=== PATIENT | male | born 1955 | race African-American/Black ===

== ENCOUNTER 2018-06-24 19:43 | Inpatient (IN) | payer MEDICARE ==
[2018-06-24] MEDS ORDERED: METHYLPREDNISOLONE INJ 125 MG/2 ML SDV IV ONE (20:05)
[2018-06-24] MEDS ORDERED: IPRATROPIUM/ALBUTEROL 0.5-2.5 MG/3 ML AMPUL NEB ONE ×2 (20:05→20:24)
--- NOTE | 2018-06-24 20:31 | ER Document Report ---
ED Respiratory Problem - General Chief Complaint: Shortness Of Breath Stated Complaint: SHORTNESS OF BREATH Time Seen by Provider: 06/24/18 20:07 Notes: Patient is a 62-year-old male presenting to the emergency department complaining of cough and congestion shortness of breath since yesterday. Patient denies fever, chest pain, abdominal pain, nausea, vomiting, dysuria. Patient states he did present to urgent care who gave him 1 breathing treatment and a IM shot of steroids. Patient is unsure of the breathing treatment that was administered and unsure of the name of the steroids. Patient does admit to taking his DuoNeb inhaler 4 times a day without relief. Patient states urgent care told him to come over to the emergency room because his oxygen saturation continues to be low. Upon arrival to the emergency department and. Patient's pulse ox was 87%. Past medical history: COPD, hyperlipidemia, hypertension, diabetes, congestive heart failure Medications: DuoNeb, metoprolol, potassium, Lasix, atorvastatin, metformin Allergies: None Surgical history: CABG x4 Patient states he quit smoking April 2015, denies EtOH use, denies illicit drug use. TRAVEL OUTSIDE OF THE [place] IN LAST 30 DAYS: No - Related Data Allergies/Adverse Reactions: No Known Allergies Allergy (Unverified 06/24/18 19:47) Past Medical History - General Information source: Patient - Social History Smoking Status: Former Smoker Lives with: Alone Family History: Reviewed & Not Pertinent Review of Systems - Review of Systems Constitutional: See HPI EENT: See HPI Cardiovascular: See HPI Respiratory: See HPI Gastrointestinal: See HPI Genitourinary: See HPI Male Genitourinary: No symptoms reported Musculoskeletal: No symptoms reported Skin: No symptoms reported Hematologic/Lymphatic: No symptoms reported Neurological/Psychological: No symptoms reported Physical Exam - Vital signs Vitals: Temp Pulse Resp BP Pulse Ox 99.2 F 62 24 H 143/60 H 87 L 06/24/18 19:51 06/24/18 19:51 06/24/18 19:51 06/24/18 19:51 06/24/18 19:51 - Notes Notes: GENERAL: Alert, interacts well. No acute distress. HEAD: Normocephalic, atraumatic. EYES: Pupils equal, round, and reactive to light. Extraocular movements intact. ENT: Oral mucosa moist, tongue midline. Pharynx within normal limits, no palatal petechiae or exudate noted. TMs nonerythematous nonbulging bilaterally. NECK: Full range of motion. Supple. Trachea midline. No adenopathy appreciated LUNGS: Slight inspiratory and diffuse expiratory wheeze all barron. No rales, or rhonchi. Patient slightly tachypneic 26 but able to speak in full sentences with no difficulty noted. Patient is currently on 2 L of oxygen nasal cannula with a saturation of 98%. HEART: Regular rate and rhythm. No murmur. Well-healed CABG scar. ABDOMEN: Soft, non-tender. Non-distended. Bowel sounds present in all 4 quadrants. EXTREMITIES: Moves all 4 extremities spontaneously. No edema, normal radial and dorsalis pedis pulses bilaterally. No cyanosis. BACK: no cervical, thoracic, lumbar midline tenderness. No saddle anesthesia, normal distal neurovascular exam. NEUROLOGICAL: Alert and oriented x3. Normal speech. cranial nerves II through XII grossly intact PSYCH: Normal affect, normal mood. SKIN: Warm, dry, normal turgor. No rashes or lesions noted. Course - Re-evaluation Re-evalutation: 06/24/18 21:40 Upon reexamination patient states he feels "100% better." Still with end expiratory wheezes in all barron, DuoNeb treatment is currently being administered. 06/24/18 22:37 Reevaluate patient after DuoNeb treatments. Patient continues to state he feels a lot better. Patient continues with an expiratory wheeze in all barron. Influenza was negative, chest x-ray shows no signs of pneumonia. Will treat with 1 more albuterol treatment, ambulate with pulse ox. 06/24/18 23:56 Upon reevaluation patient continues with expiratory wheezes all barron. No signs of vascular congestion or pleural effusions or pneumonia on chest x-ray. Patient continues with oxygen saturation around 90% on 2 L of oxygen, drops down to 86% on no oxygen and upon ambulation with oxygen. Patient continues to deny any chest pain. Patient states he does feel better but due to oxygen saturations dropping he agrees to admission. Discussed need for admission with Dr. York who agrees. Dr. York will see patient in the emergency room - Vital Signs Vital signs: Temp Pulse Resp BP Pulse Ox 99.2 F 62 15 127/64 H 92 06/24/18 19:51 06/24/18 19:51 06/25/18 00:01 06/25/18 00:01 06/25/18 00:01 - Laboratory Result Diagrams: 06/24/18 20:40 06/24/18 20:40 Laboratory results interpreted by me: 06/24/18 06/24/18 06/24/18 20:40 20:40 21:13 MCH 26.7 L RDW 16.3 H Carbon Dioxide 34 H Urine Blood SMALL H Discharge - Discharge Clinical Impression: COPD exacerbation Condition: Stable Disposition: ADMITTED OBSERVATION Admitting Provider: [facility] Unit Admitted: Telemetry
[2018-06-24 20:50] LABS: ABSOLUTE BASOPHILS # (AUTO) 0.1 10^3/uL (0.0-0.2); ABSOLUTE EOSINOPHILS # (AUTO) 0.3 10^3/uL (0.0-0.6); ABSOLUTE LYMPHOCYTES (AUTO) 1.2 10^3/uL (0.5-4.7); ABSOLUTE MONOCYTES (AUTO) 0.7 10^3/uL (0.1-1.4); ABSOLUTE NEUT (AUTO) 4.1 10^3/uL (1.7-8.2); BASOPHILS % (AUTO) 0.9 % (0-2); EOSINOPHILS % (AUTO) 5.4 % (0-6); HEMATOCRIT 43.1 % (37.9-51.0); HEMOGLOBIN 14.2 g/dL (13.5-17.0); LYMPHOCYTES % (AUTO) 18.9 % (13-45); MEAN CORPUSCULAR HEMOGLOBIN 26.7 pg (27.0-33.4); MEAN CORPUSCULAR HGB CONC 32.8 g/dL (32.0-36.0); MEAN CORPUSCULAR VOLUME 82 fl (80-97); MONOCYTES % (AUTO) 10.9 % (3-13); PLATELET COUNT 209 10^3/uL (150-450); RED BLOOD COUNT 5.29 10^6/uL (4.35-5.55); RED CELL DISTRIBUTION WIDTH 16.3 % (11.5-14.0); SEGMENTED NEUTROPHILS % (AUTO) 63.9 % (42-78); TOTAL CELLS COUNTED % (AUTO) 100 %; WHITE BLOOD COUNT 6.5 10^3/uL (4.0-10.5)
[2018-06-24] MEDS: ALBUTEROL SULFATE 0.083% NEB 2.5 MG/3 ML AMPUL NEB SCH ×2 (20:51→22:01)
[2018-06-24] MEDS: MAGNESIUM SULFATE/D5W 1 GM/100 ML RTUPB IV SCH ×2 (20:51→22:00)
[2018-06-24 21:11] LABS: ALANINE AMINOTRANSFERASE 33 U/L (21-72); ALBUMIN 3.9 g/dL (3.5-5.0); ALKALINE PHOSPHATASE 102 U/L (38-126); ANION GAP 11 (5-19); ASPARTATE AMINO TRANSFERASE 37 U/L (17-59); BILIRUBIN,DIRECT 0.1 mg/dL (0.0-0.4); BILIRUBIN,TOTAL 0.6 mg/dL (0.2-1.3); BLOOD UREA NITROGEN 16 mg/dL (7-20); CALCIUM 9.1 mg/dL (8.4-10.2); CARBON DIOXIDE 34 mmol/L (22-30); CHLORIDE 100 mmol/L (98-107); CREATINE KINASE 167 U/L (55-170); GLUCOSE 90 mg/dL (75-110); POTASSIUM 3.9 mmol/L (3.6-5.0); SODIUM 144.5 mmol/L (137-145); TOTAL PROTEIN 7.3 g/dL (6.3-8.2)
--- NOTE | 2018-06-24 21:13 | RADIOLOGY REPORT (SQ) ---
EXAM DESCRIPTION: XR CHEST 1 VIEW COMPLETED DATE/TME: 06/24/2018 20:05 CLINICAL HISTORY: 62 years, Male, difficulty breathing Heart is mildly enlarged. Status post median sternotomy. No consolidation or pleural effusion. No pulmonary edema or pneumothorax. IMPRESSION: No acute disease.
[2018-06-24 21:21] LABS: CREATINE KINASE MB 1.58 ng/mL (<4.55); NT PRO BNP 483 pg/mL (5-900)
[2018-06-24 21:22] LABS: TROPONIN I < 0.012 ng/mL
[2018-06-24 21:41] LABS: APPEARANCE,URINE CLEAR; BILIRUBIN,URINE NEGATIVE (NEGATIVE); COLOR,URINE COLORLESS; GLUCOSE, URINE NEGATIVE (NEGATIVE); KETONES,URINE NEGATIVE (NEGATIVE); LEUKOCYTE ESTERASE,URINE NEGATIVE (NEGATIVE); NITRITE,URINE NEGATIVE (NEGATIVE); PROTEIN,URINE NEGATIVE (NEGATIVE); URINE SPECIFIC GRAVITY 1.006; UROBILINOGEN,URINE NEGATIVE mg/dL (<2.0)
[2018-06-24 22:27] LABS: A TYPE INFLUENZA AG NEGATIVE (NEGATIVE); B INFLUENZA AG NEGATIVE (NEGATIVE)
[2018-06-24] MEDS ORDERED: ALBUTEROL SULFATE 0.083% NEB 2.5 MG/3 ML AMPUL NEB ONE (22:37)
[2018-06-24] MEDS ORDERED: ACETAMINOPHEN 325 MG TABLET PO PRN (23:56)
[2018-06-24] MEDS ORDERED: HYDRALAZINE HCL INJ/PF 20 MG/1 ML SDV IV PRN (23:56)
[2018-06-24] MEDS ORDERED: IPRATROPIUM/ALBUTEROL 0.5-2.5 MG/3 ML AMPUL NEB PRN (23:56)
[2018-06-24] MEDS ORDERED: GUAIFENESIN SYRP 200 MG/10 ML UDC PO PRN (23:56)
[2018-06-25] MEDS ORDERED: CHLORPHENIRAMINE MALEATE 4 MG TABLET PO ONE (00:22)
[2018-06-25] MEDS ORDERED: LEVOFLOXACIN 750 MG/D5W RTU 750 MG/150 ML RTUPB IV ONE (01:00)
[2018-06-25] MEDS: IPRATROPIUM/ALBUTEROL 0.5-2.5 MG/3 ML AMPUL NEB SCH ×4 (02:09→20:25)
--- NOTE | 2018-06-25 03:49 | PDOC H&P ---
History of Present Illness Admission Date/PCP: 06/25/18 00:05 Patient complains of: Shortness of breath History of Present Illness: NAVYA MELTON is a 62 year old male with a past medical history of coronary artery disease status post coronary artery bypass graft 2014, COPD, diabetes and chronic bronchitis. Patient presents 5 days of rhinorrhea, productive cough with landis sputum, developing shortness of breath over the last 24 hours. In the emergency room is found to have oxygen saturations of 87% on room air but otherwise unremarkable workup.. He received several nebulizer treatments with Solu-Medrol and referred to the hospitalist for admission. He denies chest pain palpitations nausea or vomiting. He admits recent prednisone and Z- Rigo which partially improved symptoms 10 days ago. Past Medical History Cardiac Medical History: Reports: Coronary Artery Disease, Hypertension Pulmonary Medical History: Reports: Bronchitis, Chronic Obstructive Pulmonary Disease (COPD) Endocrine Medical History: Reports: Diabetes Mellitus Type 2 Past Surgical History Past Surgical History: Reports: Coronary Artery Bypass Graft Social History Information Source: Patient Lives with: Alone Smoking Status: Former Smoker Frequency of Alcohol Use: None Hx Recreational Drug Use: No Drugs: None - Advance Directive Resuscitation Status: Full Code Family History Family History: COPD, Hypertension Parental Family History Reviewed: Yes Children Family History Reviewed: Yes Sibling(s) Family History Reviewed.: Yes Medication/Allergy Home Medications: Atorvastatin Calcium [Lipitor 20 mg Tablet] PO DAILY 06/25/18 Furosemide [Lasix 80 mg Tablet] 80 mg PO QAM 06/25/18 Ipratropium/Albuterol Sulfate [Duoneb 3 ml Ampul] IN PRN PRN 06/25/18 Metformin HCl [Glucophage 500 mg Tablet] 500 mg PO DAILY 06/25/18 Metoprolol Tartrate [Lopressor 25 mg Tablet] DAILY 06/25/18 Potassium Chloride 20 meq PO DAILY 06/25/18 Allergies/Adverse Reactions: No Known Allergies Allergy (Unverified 06/24/18 19:47) Review of Systems Constitutional: ABSENT: chills, fever(s), headache(s), weight gain, weight loss Eyes: ABSENT: visual disturbances Ears: ABSENT: hearing changes Nose, Mouth, and Throat: PRESENT: as per HPI, other - Rhinorrhea Cardiovascular: ABSENT: chest pain, dyspnea on exertion, edema, orthropnea, palpitations Respiratory: PRESENT: as per HPI, cough, sputum. ABSENT: hemoptysis Gastrointestinal: ABSENT: abdominal pain, constipation, diarrhea, hematemesis, hematochezia, nausea, vomiting Genitourinary: ABSENT: dysuria, hematuria Musculoskeletal: ABSENT: joint swelling Integumentary: ABSENT: rash, wounds Neurological: ABSENT: abnormal gait, abnormal speech, confusion, dizziness, focal weakness, syncope Psychiatric: ABSENT: anxiety, depression, homidical ideation, suicidal ideation Endocrine: ABSENT: cold intolerance, heat intolerance, polydipsia, polyuria Hematologic/Lymphatic: ABSENT: easy bleeding, easy bruising Physical Exam Vital Signs: Temp Pulse Resp BP Pulse Ox 99.2 F 74 18 127/64 H 93 06/24/18 19:51 06/25/18 02:10 06/25/18 02:10 06/25/18 00:01 06/25/18 02:10 General appearance: PRESENT: cooperative, mild distress. ABSENT: disheveled, hard of hearing Head exam: PRESENT: atraumatic, normocephalic Eye exam: PRESENT: conjunctiva pink, EOMI, PERRLA. ABSENT: scleral icterus Ear exam: PRESENT: normal external ear exam Mouth exam: PRESENT: moist, tongue midline Neck exam: ABSENT: carotid bruit, JVD, lymphadenopathy, thyromegaly Respiratory exam: PRESENT: accessory muscle use, prolonged expiratory phas, retraction, symmetrical. ABSENT: crackles, rhonchi Cardiovascular exam: PRESENT: RRR. ABSENT: diastolic murmur, rubs, systolic murmur Pulses: PRESENT: normal dorsalis pedis pul Vascular exam: PRESENT: normal capillary refill GI/Abdominal exam: PRESENT: normal bowel sounds, soft. ABSENT: distended, guarding, mass, organolmegaly, rebound, tenderness Rectal exam: PRESENT: deferred Extremities exam: PRESENT: full ROM. ABSENT: calf tenderness, clubbing, pedal edema Neurological exam: PRESENT: alert, awake, oriented to person, oriented to place , oriented to time, oriented to situation, CN II-XII grossly intact. ABSENT: motor sensory deficit Psychiatric exam: PRESENT: appropriate affect, normal mood. ABSENT: homicidal ideation, suicidal ideation Skin exam: PRESENT: dry, intact, warm. ABSENT: cyanosis, rash Results Impressions: Chest X-Ray 06/24/18 20:05 IMPRESSION: No acute disease. Assessment & Plan - Diagnosis (1) COPD exacerbation Is this a current diagnosis for this admission?: Yes Plan: Secondary to an acute flare of bronchiectasis. Albuterol and Atrovent, steroids , flutter valve (2) Bronchiectasis Is this a current diagnosis for this admission?: Yes Plan: Flutter valve, incentive spirometry, steroids and empiric antibiotics. (3) Diabetes Is this a current diagnosis for this admission?: Yes Plan: Outpatient regiment with Humalog sliding scale
[2018-06-25] MEDS: HEPARIN SOD (PORCINE) 5,000 UNIT/ML 1 ML SYRINGE SUBCUT SCH ×3 (06:07→21:54)
--- NOTE | 2018-06-25 07:45 | EKG REPORT ---
SEVERITY:- BORDERLINE ECG - SINUS ARRHYTHMIA, RATE 49-66 SHORT MO INTERVAL, ACCELERATED AV CONDUCTION : Confirmed by: Inocencio Aceves MD 25-Jun-2018 07:45:12
[2018-06-25] MEDS: FLUTICASONE NASAL SPRAY 50 MCG/SPRY 120 SPRAY/16 GM NASL SCH ×2 (09:55→21:54)
[2018-06-25] MEDS: PREDNISONE 20 MG TABLET PO SCH ×2 (09:55→17:06)
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
[2018-06-25] MEDS ORDERED: METOPROLOL TARTRATE 25 MG TABLET PO ONE (14:45)
[2018-06-25] MEDS ORDERED: ATORVASTATIN CALCIUM 20 MG TABLET PO ONE (14:45)
[2018-06-25] MEDS ORDERED: METFORMIN HCL 500 MG TABLET PO ONE (15:00)
[2018-06-25] MEDS: LEVOFLOXACIN 750 MG/D5W RTU 750 MG/150 ML RTUPB IV SCH (21:55)
[2018-06-26] MEDS: IPRATROPIUM/ALBUTEROL 0.5-2.5 MG/3 ML AMPUL NEB SCH ×4 (02:10→20:28)
[2018-06-26] MEDS: HEPARIN SOD (PORCINE) 5,000 UNIT/ML 1 ML SYRINGE SUBCUT SCH ×3 (06:06→21:40)
[2018-06-26] MEDS: FUROSEMIDE 80 MG TABLET PO SCH (09:36)
[2018-06-26] MEDS: POTASSIUM CHLORIDE 10 MEQ CAPSULE.ER PO SCH (09:37)
[2018-06-26] MEDS: FLUTICASONE NASAL SPRAY 50 MCG/SPRY 120 SPRAY/16 GM NASL SCH ×2 (09:37→21:41)
[2018-06-26] MEDS: PREDNISONE 20 MG TABLET PO SCH ×2 (09:37→17:36)
[2018-06-26] MEDS: METFORMIN HCL 500 MG TABLET PO SCH (09:37)
[2018-06-26] MEDS: METOPROLOL TARTRATE 25 MG TABLET PO SCH (09:37)
[2018-06-26] MEDS ORDERED: ATORVASTATIN CALCIUM 20 MG TABLET PO SCH (10:00)
--- NOTE | 2018-06-26 12:26 | PDOC PROGRESS REPORT ---
Subjective Subjective:: Still complaining of shortness of breath has also audible wheezing. On physical examination he has diffuse bilateral wheezing and coarse crepitations. Reason For Visit: COPD EXACERBATION BRONCHITIS Physical Exam Vital Signs: Temp Pulse Resp BP Pulse Ox 97.8 F 84 16 114/47 L 96 06/26/18 07:31 06/26/18 08:16 06/26/18 08:16 06/26/18 07:31 06/26/18 08:16 Intake & Output 06/25/18 06/26/18 06/27/18 06:59 06:59 06:59 Intake Total 946 Balance 946 Weight 93.3 kg General appearance: PRESENT: mild distress Head exam: PRESENT: atraumatic Mouth exam: PRESENT: moist Neck exam: ABSENT: carotid bruit, JVD, lymphadenopathy, thyromegaly Respiratory exam: PRESENT: crackles, wheezes Cardiovascular exam: PRESENT: RRR. ABSENT: diastolic murmur, rubs, systolic murmur Vascular exam: PRESENT: normal capillary refill GI/Abdominal exam: PRESENT: normal bowel sounds, soft. ABSENT: distended, guarding, mass, organolmegaly, rebound, tenderness Extremities exam: PRESENT: full ROM. ABSENT: calf tenderness, clubbing, pedal edema Neurological exam: PRESENT: alert, awake, oriented to time, oriented to situation Psychiatric exam: PRESENT: normal mood Results Impressions: Chest X-Ray 06/24/18 20:05 IMPRESSION: No acute disease. Assessment & Plan - Diagnosis (1) Acute and chronic respiratory failure with hypoxia Is this a current diagnosis for this admission?: Yes Plan: Patient has been on DuoNeb, supplemental oxygen and prednisone. (2) COPD exacerbation Is this a current diagnosis for this admission?: Yes Plan: As #1 (3) Diabetes Qualifiers: Diabetes mellitus type: type 2 Is this a current diagnosis for this admission?: Yes Plan: Continue current regimen (4) Bronchiectasis Is this a current diagnosis for this admission?: Yes Plan: Continue antibiotics
[2018-06-26] MEDS: LEVOFLOXACIN 750 MG/D5W RTU 750 MG/150 ML RTUPB IV SCH (21:40)
[2018-06-27] MEDS: IPRATROPIUM/ALBUTEROL 0.5-2.5 MG/3 ML AMPUL NEB SCH ×3 (02:05→13:46)
[2018-06-27] MEDS: HEPARIN SOD (PORCINE) 5,000 UNIT/ML 1 ML SYRINGE SUBCUT SCH ×2 (05:16→15:04)
[2018-06-27] MEDS: FUROSEMIDE 80 MG TABLET PO SCH (08:22)
[2018-06-27] MEDS: METOPROLOL TARTRATE 25 MG TABLET PO SCH (09:44)
[2018-06-27] MEDS: METFORMIN HCL 500 MG TABLET PO SCH (09:45)
[2018-06-27] MEDS: PREDNISONE 20 MG TABLET PO SCH ×2 (09:45→17:07)
[2018-06-27] MEDS: POTASSIUM CHLORIDE 10 MEQ CAPSULE.ER PO SCH (09:45)
[2018-06-27] MEDS: FLUTICASONE NASAL SPRAY 50 MCG/SPRY 120 SPRAY/16 GM NASL SCH (10:14)
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
[2018-06-27 11:51] VITALS: BP 124/68
[2018-06-27] MEDS ORDERED: ATORVASTATIN CALCIUM 20 MG TABLET PO SCH (22:00)
== END 2018-06-27 18:45 | disposition home or self-care (01) | DRG 189 ==
LOC: ER 19:43 → EH 06-25 00:05 → 4S 06-25 01:17 → OBSVTOIN 06-25 15:17
PROVIDERS: ADMIT Internal Medicine; ATTEND Internal Medicine
PROC: 3E0234Z Introduction of Serum, Toxoid and Vaccine into Muscle, Percutaneous Approach (ICD-10-PCS; principal; 2018-06-27)
DX: J96.21 Acute and chronic respiratory failure with hypoxia (principal); J44.1 Chronic obstructive pulmonary disease with (acute) exacerbation; J47.1 Bronchiectasis with (acute) exacerbation; E11.8 Type 2 diabetes mellitus with unspecified complications; I11.0 Hypertensive heart disease with heart failure; I50.9 Heart failure, unspecified; E78.5 Hyperlipidemia, unspecified; Z95.1 Presence of aortocoronary bypass graft; Z23 Encounter for immunization; Z79.84 Long term (current) use of oral hypoglycemic drugs; Z79.899 Other long term (current) drug therapy
CPT/HCPCS: 36415; 71045; 80053; 81001; 82550; 82553; 82962; 83036; 83880; 84484; 85025; 87804; 90471; 90686; 93005; 93010; 94640; 94668; 94799; 96365; 96366; 96375; 99285; G0008; G0378; J1644; J1956; J2930; J3475; J3490; J7512; J7620

== ENCOUNTER → 2018-11-06 | Outpatient (CLI) | payer MEDICARE ==
--- NOTE | 2018-11-06 10:00 | RADIOLOGY REPORT (SQ) ---
EXAM DESCRIPTION: CT CHEST WITHOUT COMPLETED DATE/TIME: 11/06/2018 9:44 am REASON FOR STUDY: J47.9 BRONCHIECTASIS, UNCOMPLICATED J47.9 BRONCHIECTASIS, UNCOMPLICATED COMPARISON: AP chest 06/24/2018 TECHNIQUE: CT scan performed of the chest without intravenous contrast. Images reviewed with lung, soft tissue and bone windows. Reconstructed coronal and sagittal MPR images reviewed. All images st ored on PACS. All CT scanners at this facility use dose modulation, iterative reconstruction, and/or weight based d osing when appropriate to reduce radiation dose to as low as reasonably achievable (ALARA). [facility]: Dose Right [facility]: CareDose [facility]: Dose Right [facility]: Teradose 4D [facility]: [employer] RADIATION DOSE: CT Rad equipment meets quality standard of care and radiation dose reduction techniq ues were employed. CTDIvol: 10.9 mGy. DLP: 435 mGy-cm. mGy. LIMITATIONS: No technical limitations. FINDINGS: LUNGS AND PLEURA: There are diffuse changes of centrilobular emphysema, most pronounced at the lung apices. No worrisome pulmonary nodules. No acute infiltrates. There is bandlike scarring at the left lung base in the lateral costophrenic sulcus, and bandlike ate lectasis or scarring just above the right hemidiaphragm. No acute infiltrates. No pleural effusion. No pneumothorax. HILAR AND MEDIASTINAL STRUCTURES: Prominent central hilar pulmonary vessels from underlying pulmonary hypertension. Mild mediastinal adenopathy is present, nonspecific, with a 2.3 x 1.8 cm AP window ly mph node, and a 2.3 x 1.5 cm precarinal lymph node. HEART AND VASCULAR STRUCTURES: No aneurysm. No pericardial effusion. Very heavily calcified [place] coronary arteries. Old sternotomy for CABG and tricuspid valve replacement UPPER ABDOMEN: No significant findings. Limited exam. THYROID AND OTHER SOFT TISSUES: No masses. No adenopathy. BONES: No significant finding. HARDWARE: None in the chest. OTHER: No other significant findings. IMPRESSION: Obstructive lung disease with pulmonary hypertension. Old CABG and tricuspid valve repl acement. Nonspecific mediastinal adenopathy TECHNICAL DOCUMENTATION: JOB ID: [id number] Quality ID # 436: Final reports with documentation of one or more dose reduction techniques (e.g., Au tomated exposure control, adjustment of the mA and/or kV according to patient size, use of iterative reconstruction technique) 2010 [employer]- All Rights Reserved Reading location - IP/workstation name: [email or web address]
== END ==
LOC: RAD 09:14
PROVIDERS: ATTEND Internal Medicine Pulmonary Disease
DX: J47.9 Bronchiectasis, uncomplicated (principal)
CPT/HCPCS: 71250

== ENCOUNTER → 2020-02-17 | Outpatient (CLI) | payer MEDICAID, MEDICARE ==
--- NOTE | 2020-02-17 10:27 | RADIOLOGY REPORT (SQ) ---
EXAM DESCRIPTION: CT LUNG CANCER SCREENING IMAGES COMPLETED DATE/TIME: 02/17/2020 9:59 am REASON FOR STUDY: HX OF NICOTINE USE (Z87.871) Z87.891 PERSONAL HISTORY OF NICOTINE DEPENDENCE Has the patient had a Chest CT scan within the past year? N Was the patient offered tobacco cessation counseling? Y Was the patient engaged in shared decision making for this test? Y Does the patient have signs or symptoms of Lung Cancer? N Is the patient a smoker? N How many pack years? 50 How many years since quitting smoking? 5 Patients age: 64 COMPARISON: 11/06/2018 TECHNIQUE: Low Dose CT scan performed of the chest without intravenous contrast for purposes of scre ening for lung cancer. Images reviewed with lung, soft tissue and bone windows. Reconstructed coron al and sagittal MPR images reviewed. All images stored on PACS. All CT scanners at this facility use dose modulation, iterative reconstruction, and/or weight based d osing when appropriate to reduce radiation dose to as low as reasonably achievable (ALARA). [facility]: Dose Right [facility]: CareDose [facility]: Dose Right [facility]: Teradose 4D [facility]: [employer] RADIATION DOSE: CT Rad equipment meets quality standard of care and radiation dose reduction techniq ues were employed. CTDIvol: NaN mGy. DLP: 0 mGy-cm. mGy. . LIMITATIONS: None FINDINGS: LUNGS AND PLEURA: No suspicious masses or nodules. No pleural effusions or calcificatio ns. No pneumothorax. Consolidative changes in the right middle lobe and both lung bases. Most lik shirley atelectasis or pneumonia. Stable bilateral centrilobular emphysematous changes most marked in th e lung apices. HILAR AND MEDIASTINAL STRUCTURES: Persistent mediastinal adenopathy. The nodes are grossly stable in size and configuration the largest is pair tracheal in location and measures approximately 2.2 x 1.7 cm. HEART AND VASCULAR STRUCTURES: No aortic aneurysm. No pericardial effusion. No cardiac devices. CORONARY ARTERY CALCIFICATIONS: There is coronary artery calcification grossly stable in appearance. UPPER ABDOMEN, THYROID, BONES, OTHER SOFT TISSUES: No significant findings. IMPRESSION: NO SIGNIFICANT FINDING IN THE LUNGS ON NON-CONTRASTED CHEST CT. CENTRILOBULAR EMPHYSEMATOUS CHANGES. CONSOLIDATION IN THE RIGHT MIDDLE LOBE IN BOTH LUNG BASES MOST LIKELY ATELECTASIS ALTHOUGH PNEUMONIA CANNOT BE EXCLUDED. THERE IS STABLE MEDIASTINAL ADENOPATHY DESCRIBED. LUNGRADS: LUNGRADS: 1 NEGATIVE. NO NODULES, OR DEFINITELY BENIGN NODULES MODIFIER: S CLINICALLY SIGNIFICANT OR POTENTIALLY CLINICALLY SIGNIFICANT FINDINGS (non lung cancer) RECOMMENDATION: Continue annual screening with LDCT in 12 months. COMMENT: CRITERIA: No lung nodules. Nodules with specific calcifications: Complete, central, popcorn, concentric rings and fat containin g nodules. TECHNICAL DOCUMENTATION: JOB ID: [id number] Quality ID # [id number]: Final reports with documentation of one or more dose reduction techniques (e.g., Au tomated exposure control, adjustment of the mA and/or kV according to patient size, use of iterative reconstruction technique) 2010 [facility] Radiology Reading location - IP/workstation name: [email or web address]
== END ==
LOC: RAD 09:44
PROVIDERS: ATTEND Registered Nurse
DX: Z12.2 Encounter for screening for malignant neoplasm of respiratory organs (principal); Z87.891 Personal history of nicotine dependence
CPT/HCPCS: G0297

== ENCOUNTER 2020-04-27 19:58 | Inpatient (IN) | payer MEDICARE ==
--- NOTE | 2020-04-27 20:31 | ER Document Report ---
ED Medical Screen (RME) - General Chief Complaint: Skin Problem Stated Complaint: LEFT LEG WOUND/DIABETIC Time Seen by Provider: 04/27/20 20:21 Primary Care Provider: FREDERICK RODRIGUEZ FNP-C [Primary Care Provider] - Follow up as needed Mode of Arrival: Wheelchair Information source: Patient Notes: 64-year-old male presents to ED for complaint of back bilateral leg swelling much worse on the left than the right. He states he noticed increasing swelling on Saturday. He states he takes Lasix 80 mg daily for the edema. He has a history of high blood pressure coronary artery disease and a four-way bypass. He is a former smoker. He states on Saturday he noticed a blister on the left leg and then today it popped and drained all over the place. He states he is diabetic. He states he is never been told he had congestive heart failure but he does take Lasix 80 mg. Will get blood work chest x-ray EKG and Accu-Chek and have patient seen by another provider. I have greeted and performed a rapid initial assessment of this patient. A comprehensive ED assessment and evaluation of the patient, analysis of test results and completion of medical decision making process will be conducted by an additional ED providers. TRAVEL OUTSIDE OF THE [place] IN LAST 30 DAYS: No - Related Data Allergies/Adverse Reactions: No Known Allergies Allergy (Unverified 06/24/18 19:47) Home Medications: metformin, atorvastatin, lasix, KCL, metop[rolol, ipratrop/albuterol nebulizer. Past Medical History - Past Medical History Cardiac Medical History: Reports: Hx Coronary Artery Disease, Hx Hypertension Pulmonary Medical History: Reports: Hx Bronchitis, Hx COPD Endocrine Medical History: Reports: Hx Diabetes Mellitus Type 2 Renal/ Medical History: Denies: Hx Peritoneal Dialysis Past Surgical History: Reports: Hx Coronary Artery Bypass Graft Physical Exam - Vital signs Vitals: Temp Pulse Resp BP Pulse Ox 98.8 F 73 22 H 126/58 H 93 04/27/20 20:08 04/27/20 20:08 04/27/20 20:08 04/27/20 20:08 04/27/20 20:08 Course - Vital Signs Vital signs: Temp Pulse Resp BP Pulse Ox 98.8 F 73 22 H 126/58 H 93 04/27/20 20:08 04/27/20 20:08 04/27/20 20:08 04/27/20 20:08 04/27/20 20:08 Doctor's Discharge - Discharge Referrals: FREDERICK RODRIGUEZ FNP-C [Primary Care Provider] - Follow up as needed
--- NOTE | 2020-04-27 20:59 | EKG REPORT ---
SEVERITY:- ABNORMAL ECG - SINUS RHYTHM ATRIAL PREMATURE COMPLEX RIGHT AXIS DEVIATION CONSIDER LEFT VENTRICULAR HYPERTROPHY ABNORMAL T, CONSIDER ISCHEMIA, INFERIOR LEADS : Confirmed by: Jethro Mayers MD 27-Apr-2020 20:59:24
--- NOTE | 2020-04-27 21:14 | RADIOLOGY REPORT (SQ) ---
EXAM DESCRIPTION: XR CHEST 2 VIEWS COMPLETED DATE/TME: 04/27/2020 20:35 CLINICAL HISTORY: 64 years, Male, Pedal edema history of CAD with four-way bypass COMPARISON: Prior study from 06/24/2018 NUMBER OF VIEWS: 2 TECHNIQUE: Frontal and lateral radiographs of the chest were acquired LIMITATIONS: None. FINDINGS: Status post median sternotomy. Cardiac and mediastinal contours are stable. Persistent blunting of left costophrenic sulcus, likely indicating a chronic pleural effusion or an/or pleural thickening. Lungs are otherwise clear. No pneumothorax. IMPRESSION: Chronic blunting of left costophrenic sulcus, either indicating a chronic left pleural effusion and/or pleural thickening. copyright 2010 [employer]- All Rights Reserved
[2020-04-27 21:29] LABS: VENOUS BLOOD BASE EXCESS 3.7 mmol/L; VENOUS BLOOD HCO3 33.1 mmol/L (20-32); VENOUS BLOOD PH 7.28 (7.30-7.42)
[2020-04-27 21:36] LABS: VENOUS BLOOD PCO2 72.5 mmHg (35-63)
[2020-04-27 21:39] LABS: ABSOLUTE EOSINOPHILS # (AUTO) 0.1 10^3/uL (0.0-0.6); ABSOLUTE LYMPHOCYTES (AUTO) 1.3 10^3/uL (0.5-4.7); ABSOLUTE MONOCYTES (AUTO) 0.7 10^3/uL (0.1-1.4); ABSOLUTE NEUT (AUTO) 3.9 10^3/uL (1.7-8.2); BASOPHILS % (AUTO) 0.7 % (0-2); HEMATOCRIT 49.1 % (37.9-51.0); HEMOGLOBIN 15.6 g/dL (13.5-17.0); LYMPHOCYTES % (AUTO) 21.4 % (13-45); MEAN CORPUSCULAR HEMOGLOBIN 24.7 pg (27.0-33.4); MEAN CORPUSCULAR HGB CONC 31.9 g/dL (32.0-36.0); MEAN CORPUSCULAR VOLUME 78 fl (80-97); MONOCYTES % (AUTO) 11.7 % (3-13); PLATELET COUNT 188 10^3/uL (150-450); RED BLOOD COUNT 6.34 10^6/uL (4.35-5.55); RED CELL DISTRIBUTION WIDTH 20.9 % (11.5-14.0); SEGMENTED NEUTROPHILS % (AUTO) 64.2 % (42-78); TOTAL CELLS COUNTED % (AUTO) 100 %; WHITE BLOOD COUNT 6.1 10^3/uL (4.0-10.5)
[2020-04-27 21:51] LABS: ALBUMIN 3.6 g/dL (3.5-5.0); ALKALINE PHOSPHATASE 91 U/L (38-126); ANION GAP 7 (5-19); ASPARTATE AMINO TRANSFERASE 45 U/L (17-59); BILIRUBIN,DIRECT 0.6 mg/dL (0.0-0.4); BILIRUBIN,TOTAL 1.2 mg/dL (0.2-1.3); BLOOD UREA NITROGEN 34 mg/dL (7-20); C-REACTIVE PROTEIN 43.8 mg/L (<10.0); CARBON DIOXIDE 32 mmol/L (22-30); CHLORIDE 98 mmol/L (98-107); GLUCOSE 105 mg/dL (75-110); POTASSIUM 4.9 mmol/L (3.6-5.0); TOTAL PROTEIN 6.7 g/dL (6.3-8.2)
[2020-04-27 21:54] LABS: APPEARANCE,URINE CLEAR; BILIRUBIN,URINE NEGATIVE (NEGATIVE); COLOR,URINE YELLOW; GLUCOSE, URINE NEGATIVE (NEGATIVE); KETONES,URINE NEGATIVE (NEGATIVE); LEUKOCYTE ESTERASE,URINE NEGATIVE (NEGATIVE); NITRITE,URINE NEGATIVE (NEGATIVE); PROTEIN,URINE NEGATIVE (NEGATIVE); URINE SPECIFIC GRAVITY 1.008
[2020-04-27 22:01] LABS: TROPONIN I 0.034 ng/mL
[2020-04-27] MEDS ORDERED: IPRATROPIUM/ALBUTEROL 0.5-2.5 MG/3 ML AMPUL NEB ONE (22:37)
[2020-04-27] MEDS ORDERED: FUROSEMIDE INJ/PF 40 MG/4 ML SDV IV ONE (22:37)
--- NOTE | 2020-04-27 22:45 | ER Document Report ---
ED General - General Chief Complaint: Skin Problem Stated Complaint: LEFT LEG WOUND/DIABETIC Time Seen by Provider: 04/27/20 20:21 Mode of Arrival: Wheelchair Notes: Patient is a 64 year old male that comes to the ED for chief complaint of bilateral leg swelling for the past 4 days or so. He states that normally his l egs are not swollen at all, he states he takes Lasix although he is unsure exactly why. He states that he started noticing swelling but the left leg started becoming extremely swollen and he started developing a blister. He states the blister on the left lower inner leg popped today and drained clear fluid all over his house. Patient does report cough and some shortness of breath but denies chest pain. He states his breathing is close to baseline when at rest. Patient has a history of CABG, COPD (former smoker on 2.5L nc as needed), type 2 diabetes on metformin, hypertension. TRAVEL OUTSIDE OF THE [place] IN LAST 30 DAYS: No - Related Data Allergies/Adverse Reactions: No Known Allergies Allergy (Unverified 06/24/18 19:47) Home Medications: metformin, atorvastatin, lasix, KCL, metop[rolol, ipratrop/albuterol nebulizer. Past Medical History - General Information source: Patient - Social History Smoking Status: Former Smoker Frequency of alcohol use: None Drug Abuse: None Lives with: Alone Family History: COPD, Hypertension - Past Medical History Cardiac Medical History: Reports: Hx Coronary Artery Disease, Hx Hypertension Pulmonary Medical History: Reports: Hx Bronchitis, Hx COPD Endocrine Medical History: Reports: Hx Diabetes Mellitus Type 2 Renal/ Medical History: Denies: Hx Peritoneal Dialysis Past Surgical History: Reports: Hx Coronary Artery Bypass Graft - Immunizations Hx Pneumococcal Vaccination: 06/12/18 Review of Systems - Review of Systems Constitutional: No symptoms reported EENT: No symptoms reported Cardiovascular: See HPI Respiratory: See HPI Gastrointestinal: No symptoms reported Genitourinary: No symptoms reported Male Genitourinary: No symptoms reported Musculoskeletal: See HPI Skin: No symptoms reported Hematologic/Lymphatic: No symptoms reported Neurological/Psychological: No symptoms reported Physical Exam - Vital signs Vitals: Temp Pulse Resp BP Pulse Ox 98.8 F 73 22 H 126/58 H 93 04/27/20 20:08 04/27/20 20:08 04/27/20 20:08 04/27/20 20:08 04/27/20 20:08 - Notes Notes: GENERAL: Patient somewhat chronically ill-appearing but is not in severe distress HEAD: Normocephalic, atraumatic. EYES: Pupils equal, round, and reactive to light. Extraocular movements intact. ENT: Oral mucosa moist, tongue midline. Oropharynx unremarkable. Airway patent. NECK: Full range of motion. Supple. Trachea midline. No lymphadenopathy. LUNGS: Tachypnea, decreased breath sounds bilaterally, expiratory wheezes heard, no overt rales or rhonchi. Nontender chest wall. HEART: Regular rate and rhythm. No murmur ABDOMEN: Soft, non-tender. Non-distended. EXTREMITIES: Marked 3+ swelling of both lower extremities although the left is more significantly swollen compared to the right. There is a blister that is at least 6 cm across that popped over the left medial distal extremity. Distal sensations and capillary refill intact. Otherwise unremarkable. BACK: no cervical, thoracic, lumbar midline tenderness. No saddle anesthesia, normal distal neurovascular exam. NEUROLOGICAL: Alert and oriented x3. Normal speech. Cranial nerves II through XII grossly intact. Strength 5/5 in all extremities. PSYCH: Normal affect, normal mood. SKIN: Warm, dry, normal turgor. No rashes or lesions noted. Course - Re-evaluation Re-evalutation: Patient initially with some shortness of breath, wheezing, decreased breath sounds. Venous blood gas already obtained from triage and shows respiratory acidosis with pH of 7.26 and elevated bicarb at 72. Unfortunately I do not have any comparison to see how close patient is to his chronic baseline. Patient was placed on BiPAP initially although I suspect he will be able to be transitioned off because after a single DuoNeb and steroids patient was significantly improved. Patient does have significantly swollen lower extrem ities especially on the left, he has a large area of a popped blister which reportedly had clear fluid leaking. Patient states this is new for him. BNP is greater than 9740 the last time it was measured it was only in the 400s. Chest x-ray shows questionable small pleural effusion, nonspecific, EKG nonspecific, troponin indeterminate, CBC nonspecific, chemistry unremarkable except for mildly elevated renal functioning. CRP was obtained from triage but patient has no overt signs of infection, no cellulitis noted on the lower extremity, he has no fever, no leukocytosis. Nonspecific. I discussed with patient. Because of his marked lower extremity swelling with weeping blisters, COPD exacerbation, will discuss with hospitalist for admission. Discussed with Dr. Tran, hospitalist, patient accepted to the medical floor full admission. Patient states appreciation and agreement. - Vital Signs Vital signs: Temp Pulse Resp BP Pulse Ox 98.0 F 69 18 133/51 H 96 04/28/20 03:55 04/28/20 03:57 04/28/20 03:55 04/28/20 03:55 04/28/20 04:45 - Laboratory Result Diagrams: 04/27/20 21:10 04/27/20 21:10 Laboratory results interpreted by me: 04/27/20 04/27/20 04/27/20 21:10 21:10 21:10 RBC 6.34 H MCV 78 L MCH 24.7 L MCHC 31.9 L RDW 20.9 H VBG pH VBG pCO2 VBG HCO3 Carbon Dioxide 32 H BUN 34 H Creatinine 1.43 H Est GFR (MDRD) Non-Af 49 L Direct Bilirubin 0.6 H C-Reactive Protein 43.8 H NT-Pro-B Natriuret Pep 9740 H Urine Urobilinogen 04/27/20 04/27/20 21:10 21:20 RBC MCV MCH MCHC RDW VBG pH 7.28 L VBG pCO2 72.5 H* VBG HCO3 33.1 H Carbon Dioxide BUN Creatinine Est GFR (MDRD) Non-Af Direct Bilirubin C-Reactive Protein NT-Pro-B Natriuret Pep Urine Urobilinogen 2.0 H - EKG Interpretation by Me Additional EKG results interpreted by me: EKG shows sinus rhythm at a rate of 69, PACs, right axis deviation, inverted T waves in the inferior leads, no overt ST segment changes in consecutive leads. Discharge - Discharge Clinical Impression: Swelling of lower extremity, Blister of skin, COPD exacerbation, Elevated brain natriuretic peptide (BNP) level, Respiratory acidosis Condition: Stable Disposition: ADMITTED INPATIENT Admitting Provider: Chelsea (Hospitalist) Unit Admitted: Medical Floor
[2020-04-27] MEDS ORDERED: METHYLPREDNISOLONE INJ 125 MG/2 ML SDV IV ONE (23:26)
[2020-04-28] MEDS ORDERED: MORPHINE SULFATE 10 MG/ML INJ IV ONE
[2020-04-28] MEDS ORDERED: ONDANSETRON HCL INJ/PF 4 MG/2 ML SDV IV PRN (02:54)
[2020-04-28] MEDS ORDERED: MAG HYDROX/AL HYDROX/SIMETH SUSP 30 ML UDCUP PO PRN (02:54)
[2020-04-28] MEDS ORDERED: GUAIFENESIN SYRP 200 MG/10 ML UDC PO PRN (03:01)
[2020-04-28] MEDS ORDERED: MORPHINE SULFATE 10 MG/ML INJ IV PRN ×2 (03:01→03:15)
[2020-04-28] MEDS ORDERED: HYDRALAZINE HCL INJ/PF 20 MG/1 ML SDV IV PRN (03:01)
[2020-04-28] MEDS ORDERED: ACETAMINOPHEN 325 MG TABLET PO PRN (03:01)
[2020-04-28] MEDS ORDERED: MELATONIN 5 MG TABLET PO PRN (03:01)
[2020-04-28] MEDS ORDERED: LORAZEPAM INJ 2 MG/1 ML VIAL IV PRN (03:01)
[2020-04-28] MEDS ORDERED: METOPROLOL TARTRATE PF/INJ 5 MG/5 ML SDV IV PRN (03:01)
[2020-04-28 04:18] LABS: CREATINE KINASE MB 1.92 ng/mL (<4.55); TROPONIN I 0.032 ng/mL
[2020-04-28] MEDS: PANTOPRAZOLE SODIUM 40 MG TABLET.DR PO SCH (05:29)
[2020-04-28] MEDS: HEPARIN SOD (PORCINE) 5,000 UNIT/ML 1 ML VIAL SUBCUT SCH ×3 (05:29→22:38)
[2020-04-28] MEDS: FUROSEMIDE INJ/PF 40 MG/4 ML SDV IV SCH ×4 (05:29→22:38)
[2020-04-28] MEDS ORDERED: PROMETHAZINE HCL INJ 25 MG/1 ML VIAL IV PRN (06:20)
--- NOTE | 2020-04-28 06:22 | PDOC H&P ---
History of Present Illness Admission Date/PCP: 04/28/2020 02:29 ELTON SHANKAR PA-C Patient complains of: Swelling of legs History of Present Illness: NAVYA MELTON is a 64 year old male who presented to the emergency room with a 4-day history of lower extremity swelling. He admits gradually worsening (now severe) swelling of his bilateral lower extremities over the last 4 days. The swelling has been greater on the left side than on the right side and has been accompanied by bullous formations on the left lower leg which have opened and drained spontaneously. His leg swelling has been associated with mildly worsened exertional dyspnea. He denies other associated or accompanying signs and symptoms. He denies prior similar episodes. He has not identified any aggravating or ameliorating factors for his lower extremity swelling. In the emergency room he was found to have an elevated BNP and was noted to be mildly hypoxic however he is normally on home oxygen at 2.5 L/min via nasal cannula. He was treated for a brief period of time with BiPAP in the ER. He was subseq uently admitted to the hospital for further evaluation and treatment. Past Medical History Cardiac Medical History: Reports: Coronary Artery Disease, Hypertension Denies: Atrial Fibrillation, Congestive Heart Failure, DVT, Myocardial Infarction, Hyperlipidema, Pulmonary Embolism Pulmonary Medical History: Reports: Bronchitis, Chronic Obstructive Pulmonary Disease (COPD) - With bronchiectasis, Respiratory Failure - Chronic respiratory failure with hypoxia EENT Medical History: Denies: Cataracts, Ears - Hearing aids Neurological Medical History: Denies: Hemorrhagic CVA, Ischemic CVA, Seizures Endocrine Medical History: Reports: Diabetes Mellitus Type 2 Denies: Diabetes Mellitus Type 1, Hyperthyroidism, Hypothyroidism Renal/ Medical History: Denies: Chronic Kidney Disease, Nephrolithiasis Malignancy Medical History: Reports: None GI Medical History: Denies: Cirrhosis, Hepatitis, Peptic Ulcer Disease Musculoskeltal Medical History: Denies: Fibromyalgia, Gout Skin Medical History: Denies: Eczema, Psoriasis Psychiatric Medical History: Reports: Tobacco Dependency Denies: Alcohol Dependency, Substance Abuse Traumatic Medical History: Reports: None Hematology: Denies: Anemia, Bleeding Tendencies Infectious Medical History: Reports: None Past Surgical History Past Surgical History: Reports: Cardiac Catheterization, Coronary Artery Bypass Graft Social History Information Source: Patient Lives with: Friend Smoking Status: Former Smoker Electronic Cigarette use?: No Frequency of Alcohol Use: None Hx Recreational Drug Use: No Drugs: None Hx Prescription Drug Abuse: No - Advance Directive Resuscitation Status: Full Code Surrogate healthcare decision maker:: Eliana Mckinney Family History Family History: COPD, Hypertension Parental Family History Reviewed: Yes Children Family History Reviewed: No Sibling(s) Family History Reviewed.: Yes Medication/Allergy Home Medications: Atorvastatin Calcium [Lipitor 20 mg Tablet] 20 mg PO DAILY 06/25/18 Furosemide [Lasix 80 mg Tablet] 80 mg PO QAM 06/25/18 Ipratropium/Albuterol Sulfate [Duoneb 3 ml Ampul] 1 vial NEB PRN PRN 06/25/18 Metformin HCl [Glucophage 500 mg Tablet] 500 mg PO DAILY 06/25/18 Metoprolol Tartrate [Lopressor 25 mg Tablet] 25 mg PO DAILY 06/25/18 Potassium Chloride 20 meq PO DAILY 06/25/18 Azithromycin [Zithromax] 250 mg PO DAILY 7 Days #7 tablet 06/27/18 Ipratropium/Albuterol Sulfate [Duoneb 3 ml Ampul] 3 ml NEB NOW #10 vial.neb 06/27/18 Prednisone [Deltasone 20 mg Tablet] 40 mg PO DAILY 5 Days #10 tablet 06/27/18 Allergies/Adverse Reactions: No Known Allergies Allergy (Unverified 06/24/18 19:47) Review of Systems Constitutional: ABSENT: anorexia, fever(s) Eyes: ABSENT: visual disturbances, other - Eye pain Ears: ABSENT: hearing changes, other - Ear pain Nose, Mouth, and Throat: ABSENT: headache(s), sore throat Cardiovascular: PRESENT: as per HPI, dyspnea on exertion - Chronic, edema. ABSENT: chest pain, orthropnea, palpitations Respiratory: PRESENT: cough - Occasional chronic, dyspnea - Chronic Gastrointestinal: ABSENT: abdominal pain, constipation, diarrhea, nausea, vomiting Genitourinary: ABSENT: dysuria, hematuria Musculoskeletal: ABSENT: joint swelling, muscle weakness Integumentary: ABSENT: pruritus, rash Neurological: ABSENT: confusion, convulsions, focal weakness, memory loss, syncope Psychiatric: ABSENT: anxiety, depression Endocrine: ABSENT: cold intolerance, heat intolerance Hematologic/Lymphatic: ABSENT: easy bleeding, easy bruising Allergic/Immunologic: ABSENT: seasonal rhinorrhea Physical Exam Vital Signs: Temp Pulse Resp BP Pulse Ox 98.8 F 73 22 H 126/58 H 93 04/27/20 20:08 04/27/20 20:08 04/27/20 20:08 04/27/20 20:08 04/27/20 20:08 Intake & Output 04/26/20 04/27/20 04/28/20 23:59 23:59 23:59 Weight 91.2 kg General appearance: PRESENT: no acute distress, cooperative Head exam: PRESENT: atraumatic Eye exam: PRESENT: conjunctiva pink. ABSENT: conjunctival injection, scleral icterus Ear exam: PRESENT: normal external ear exam. ABSENT: bleeding, drainage Mouth exam: PRESENT: dry mucosa, neck supple Neck exam: ABSENT: thyromegaly, tracheal deviation Respiratory exam: PRESENT: decreased breath sounds - Mildly decreased breath sounds throughout all bar[place], prolonged expiratory phas - Minimally prolonged expiratory phase in all barron, symmetrical, wheezes - Minimal expiratory wheezes noted throughout all barron Cardiovascular exam: PRESENT: RRR. ABSENT: clicks, gallop, rubs Pulses: PRESENT: normal radial pulses, normal dorsalis pedis pul Vascular exam: PRESENT: normal capillary refill. ABSENT: pallor GI/Abdominal exam: PRESENT: normal bowel sounds, soft. ABSENT: tenderness Rectal exam: PRESENT: deferred Extremities exam: PRESENT: pedal edema, tenderness - Left lower extremity mildly tender to palpation, +2 edema - Pretibial pitting edema of the right lower extremity, other - 3+ pretibial pitting edema of the left lower extremity with superficial bullae tender. ABSENT: joint swelling Musculoskeletal exam: ABSENT: deformity, dislocation Neurological exam: PRESENT: alert, oriented to person, oriented to place, oriented to time, oriented to situation, CN II-XII grossly intact. ABSENT: motor sensory deficit Psychiatric exam: PRESENT: appropriate affect, normal mood Skin exam: PRESENT: dry, intact, warm, other - Edema of the bilateral lower extremities with superficial bullae as previously noted present on the left side.. ABSENT: jaundice, rash, urticaria Results Laboratory Results: 04/27/20 21:10 04/27/20 21:10 04/27/20 04/27/20 04/27/20 21:10 21:10 21:10 WBC 6.1 RBC 6.34 H Hgb 15.6 Hct 49.1 MCV 78 L MCH 24.7 L MCHC 31.9 L RDW 20.9 H Plt Count 188 Seg Neutrophils % 64.2 VBG pH 7.28 L VBG pCO2 72.5 H* VBG HCO3 33.1 H VBG Base Excess 3.7 Sodium 137.1 Potassium 4.9 Chloride 98 Carbon Dioxide 32 H Anion Gap 7 BUN 34 H Creatinine 1.43 H Est GFR ( Amer) > 60 Glucose 105 Calcium 9.0 Total Bilirubin 1.2 AST 45 Alkaline Phosphatase 91 C-Reactive Protein 43.8 H Total Protein 6.7 Albumin 3.6 Lipase 148.0 Urine Color Urine Appearance Urine pH Ur Specific [place] Urine Protein Urine Glucose (UA) Urine Ketones Urine Blood Urine Nitrite Ur Leukocyte Esterase Urine WBC (Auto) Urine RBC (Auto) 04/27/20 21:20 WBC RBC Hgb Hct MCV MCH MCHC RDW Plt Count Seg Neutrophils % VBG pH VBG pCO2 VBG HCO3 VBG Base Excess Sodium Potassium Chloride Carbon Dioxide Anion Gap BUN Creatinine Est GFR ( Amer) Glucose Calcium Total Bilirubin AST Alkaline Phosphatase C-Reactive Protein Total Protein Albumin Lipase Urine Color YELLOW Urine Appearance CLEAR Urine pH 5.0 Ur Specific [place] 1.008 Urine Protein NEGATIVE Urine Glucose (UA) NEGATIVE Urine Ketones NEGATIVE Urine Blood NEGATIVE Urine Nitrite NEGATIVE Ur Leukocyte Esterase NEGATIVE Urine WBC (Auto) 2 Urine RBC (Auto) 1 04/27/20 21:10 Troponin I 0.034 NT-Pro-B Natriuret Pep 9740 H Impressions: Chest X-Ray 04/27/20 20:35 IMPRESSION: Chronic blunting of left costophrenic sulcus, either indicating a chronic left pleural effusion and/or pleural thickening. copyright 2010 [employer]- All Rights Reserved Assessment and Plan - Diagnosis (1) Asymmetric edema of both lower extremities Is this a current diagnosis for this admission?: Yes (2) Acute right-sided congestive heart failure Is this a current diagnosis for this admission?: Yes (3) Elevated brain natriuretic peptide (BNP) level Is this a current diagnosis for this admission?: Yes (4) Acute on chronic respiratory failure with hypoxia and hypercapnia Is this a current diagnosis for this admission?: Yes (5) Diabetes mellitus type 2 in obese Is this a current diagnosis for this admission?: Yes (6) Chronic obstructive pulmonary disease Qualifiers: COPD type: unspecified COPD Qualified Code(s): J44.9 - Chronic obstructive pulmonary disease, unspecified Is this a current diagnosis for this admission?: Yes (7) Hypertension Qualifiers: Hypertension type: essential hypertension Qualified Code(s): I10 - Essential (primary) hypertension Is this a current diagnosis for this admission?: Yes (8) Coronary artery disease Qualifiers: Coronary Disease-Associated Artery/Lesion type: [place] artery [place] vs. transplanted heart: [place] heart Associated angina: without angina Qualified Code(s): I25.10 - Atherosclerotic heart disease of [place] coronary artery without angina pectoris Is this a current diagnosis for this admission?: Yes (9) Hyperlipidemia Qualifiers: Hyperlipidemia type: unspecified Qualified Code(s): E78.5 - Hyperlipidemia, unspecified Is this a current diagnosis for this admission?: Yes - Plan Summary Summary: Patient be admitted to the medical floor he will receive routine supportive and symptomatic cares. Cardiology consultation will be obtained with Dr. Mayers. He will be treated with IV Lasix 40 mg every 6 hours initially. He will receive morphine sulfate 2 to 4 mg IV every 2 hours as needed for pain. He will receive Ativan 1 mg IV every 4 hours as needed for anxiety or restlessness. He will receive supplemental oxygen at 2.5 L/min via nasal cannula using the O2 protocol. He will have available as needed BiPAP for acute dyspnea. Will be continued on a standard pulmonary toilet with Xopenex, Atrovent and Pulmicort delivered via nebulizer. He will be treated with Levaquin 500 mg p.o. daily x6 days. He will be maintained on a cardiac and diabetic restricted diet. Before meals and at bedtime Accu-Cheks will be obtained with sliding scale insulin for hyperglycemia and a hypoglycemic protocol in place. CBCs, metabolic profiles and additional laboratory and/or radiographic evaluations will be obtained as needed. - Time Time Spent with patient: 15-24 minutes Medications reviewed and adjusted accordingly: Yes Anticipated Discharge Disposition: Home with Home Health Anticipated Discharge Timeframe: within 72 hours - Inpatient Certification Based on my medical assessment, after consideration of the patient's comorbidities, presenting symptoms, or acuity I expect that the services needed warrant INPATIENT care.: Yes I certify that my determination is in accordance with my understanding of Medicare's requirements for reasonable and necessary INPATIENT services [42 CFR 412.3e].: Yes Medical Necessity: Significant Comorbidiites Make Outpatient Treatment Too Risky, Need Close Monitoring Due to Risk of Patient Decompensation, Need for Nebulizer Therapy and Monitoring of Response, Risk of Complication if Not Cared For in Hospital
[2020-04-28] MEDS ORDERED: METHYLPREDNISOLONE INJ 40 MG/1 ML SDV IV ONE (06:45)
[2020-04-28] MEDS: POTASSIUM CHLORIDE 10 MEQ TABLET.ER PO SCH ×3 (07:49→17:13)
[2020-04-28] MEDS: INSULIN REG, HUMAN 100 UNIT/ML 3 ML VIAL (PYX) SUBCUT SCH ×4 (07:49→22:38)
[2020-04-28] MEDS: LEVALBUTEROL HCL NEB 1.25 MG/3 ML AMPUL NEB SCH ×2 (08:41→16:31)
[2020-04-28] MEDS: BUDESONIDE NEB 0.5 MG/2 ML AMPUL NEB SCH ×2 (08:41→20:14)
[2020-04-28] MEDS: IPRATROPIUM BROMIDE 0.02% NEB 0.5 MG/2.5 ML AMPUL NEB SCH ×2 (08:41→16:31)
[2020-04-28 08:57] LABS: ARTERIAL BLOOD FIO2 3L; ARTERIAL BLOOD HCO3 31.7 mmol/L (20-24); ARTERIAL BLOOD O2 SATURATION 95.9 % (94-98); ARTERIAL BLOOD PCO2 66.3 mmHg (35-45); ARTERIAL BLOOD PO2 90.8 mmHg (80-100); ARTERIAL BLOOD TOTAL CO2 33.7 mmol/L (23-27)
[2020-04-28] MEDS: LEVOFLOXACIN 500 MG TABLET PO SCH (09:50)
[2020-04-28] MEDS: DOCUSATE SODIUM 100 MG CAPSULE PO SCH ×2 (09:50→17:13)
[2020-04-28 11:21] LABS: CREATINE KINASE MB 1.97 ng/mL (<4.55); TROPONIN I 0.018 ng/mL
[2020-04-28] MEDS: METHYLPREDNISOLONE INJ 40 MG/1 ML SDV IV SCH ×2 (12:08→17:13)
--- NOTE | 2020-04-28 14:47 | PDOC CONSULTATION ---
Consultation Consult Date: 04/28/20 Attending physician:: ALLYSON HORN Provider Consulted: PAULIE BATISTA Consult reason:: Congestive heart failure History of Present Illness Admission Date/PCP: 04/28/20 02:27 ELTON SHANKAR PA-C Patient complains of: Shortness of breath and lower extremity edema History of Present Illness: NAVYA MELTON is a 64 year old male With the following active problems 1. Coronary disease 2. CABG 04/2015 3. COPD 4. Pulmonary arterial hypertension group 3 5. Dyslipidemia 6. Systemic hypertension 7. Mild centrilobular emphysema 8. Tricuspid valve ring 04/2015 10 congestive heart failure NYHA class II with preserved ejection fraction 11. Diabetes mellitus Patient known to me from office who has been on stable medical therapy for congestive heart failure with preserved ejection fraction and with coronary artery disease status post CABG. He has had occasional flareups of COPD as well as congestive heart failure but for the most part he has been well managed. He has not had recent exacerbations and has been compliant with medical therapy. He was admitted to the hospital on account of worsening shortness of breath and bilateral lower extremity edema. Patient claims that he ran out of his statin medication. Otherwise has been compliant with his medications. He is a former smoker. Presently does not smoke. Surgical history significant for CABG 05/08/2015 and tricuspid valve ring placement 05/08/2015 Review of systems is positive for dyspnea and bilateral lower extremity edema negative for chest pain nausea vomiting negative abdominal pain Full 11 review of systems was asked. Pertinent positives noted here and in the HPI all other systems are negative Family history is negative for any familial illnesses. Past Medical History Cardiac Medical History: Reports: Coronary Artery Disease, Hypertension Denies: Atrial Fibrillation, Congestive Heart Failure, DVT, Myocardial Infarction, Hyperlipidema, Pulmonary Embolism Pulmonary Medical History: Reports: Bronchitis, Chronic Obstructive Pulmonary Disease (COPD) - With bronchiectasis, Respiratory Failure - Chronic respiratory failure with hypoxia EENT Medical History: Denies: Cataracts, Ears - Hearing aids Neurological Medical History: Denies: Hemorrhagic CVA, Ischemic CVA, Seizures Endocrine Medical History: Reports: Diabetes Mellitus Type 2 Denies: Diabetes Mellitus Type 1, Hyperthyroidism, Hypothyroidism Renal/ Medical History: Denies: Chronic Kidney Disease, Nephrolithiasis Malignancy Medical History: Reports: None GI Medical History: Denies: Cirrhosis, Hepatitis, Peptic Ulcer Disease Musculoskeltal Medical History: Denies: Fibromyalgia, Gout Skin Medical History: Denies: Eczema, Psoriasis Psychiatric Medical History: Reports: Tobacco Dependency Denies: Alcohol Dependency, Depression, Substance Abuse Traumatic Medical History: Reports: None Hematology: Denies: Anemia, Bleeding Tendencies Infectious Medical History: Reports: None Past Surgical History Past Surgical History: Reports: Cardiac Catheterization, Coronary Artery Bypass Graft Social History Lives with: Friend Smoking Status: Former Smoker Electronic Cigarette use?: No Last Time Smoked: 2014 Frequency of Alcohol Use: None Hx Recreational Drug Use: No Drugs: None Hx Prescription Drug Abuse: No - Advance Directive Resuscitation Status: Full Code Family History Family History: COPD, Hypertension Parental Family History Reviewed: Yes - No familial illnesses reported. Children Family History Reviewed: NA Sibling(s) Family History Reviewed.: NA Medication/Allergy Home Medications: Atorvastatin Calcium [Lipitor 20 mg Tablet] 20 mg PO DAILY 06/25/18 Furosemide [Lasix 80 mg Tablet] 80 mg PO QAM 06/25/18 Ipratropium/Albuterol Sulfate [Duoneb 3 ml Ampul] 1 vial NEB Q6HP PRN 06/25/18 Metformin HCl [Glucophage 500 mg Tablet] 500 mg PO BID 06/25/18 Metoprolol Tartrate [Lopressor 25 mg Tablet] 25 mg PO DAILY 06/25/18 Potassium Chloride 20 meq PO DAILY 06/25/18 Allergies/Adverse Reactions: No Known Allergies Allergy (Unverified 06/24/18 19:47) Review of Systems Constitutional: ABSENT: as per HPI, anorexia, chills, fatigue, fever(s), headache(s), night sweats, weakness, weight gain, weight loss, other Eyes: PRESENT: as per HPI Ears: PRESENT: as per HPI. ABSENT: hearing changes Cardiovascular: PRESENT: dyspnea on exertion, edema Respiratory: PRESENT: dyspnea Musculoskeletal: PRESENT: as per HPI Neurological: ABSENT: as per HPI, abnormal gait, abnormal movements, abnormal speech, confusion, convulsions, dizziness, focal weakness, frequent falls, lack of coordination, memory loss, numbness, paresthesias, restless legs, syncope, tingling, tremor(s), vertigo, weakness, other Hematologic/Lymphatic: ABSENT: as per HPI, easy bleeding, easy bruising, lym phadenopathy, other Physical Exam Vital Signs: Temp Pulse Resp BP Pulse Ox 97.7 F 62 16 124/61 95 04/28/20 07:41 09/10/20 08:48 04/28/20 08:48 04/28/20 07:41 04/28/20 08:48 Intake & Output 04/27/20 04/28/20 04/29/20 06:59 06:59 06:59 Intake Total 440 240 Balance 440 240 Weight 91.2 kg General appearance: PRESENT: no acute distress, well-developed, well-nourished Head exam: PRESENT: atraumatic, normocephalic Eye exam: PRESENT: conjunctiva pink, EOMI Mouth exam: PRESENT: moist Respiratory exam: PRESENT: decreased breath sounds, symmetrical, unlabored Cardiovascular exam: PRESENT: RRR, +S1, +S2, other - Well-healed sternotomy scar Pulses: PRESENT: normal radial pulses GI/Abdominal exam: PRESENT: soft Rectal exam: PRESENT: deferred Extremities exam: PRESENT: +1 edema Neurological exam: PRESENT: alert, awake, oriented to person, oriented to place, oriented to time, oriented to situation Psychiatric exam: PRESENT: appropriate affect Skin exam: PRESENT: dry, intact, normal color Results Laboratory Results: 04/27/20 21:10 04/27/20 21:10 04/27/20 04/27/20 04/27/20 21:10 21:10 21:10 WBC 6.1 RBC 6.34 H Hgb 15.6 Hct 49.1 MCV 78 L MCH 24.7 L MCHC 31.9 L RDW 20.9 H Plt Count 188 Seg Neutrophils % 64.2 Carbonic Acid HCO3/H2CO3 Ratio ABG pH ABG pCO2 ABG pO2 ABG HCO3 ABG O2 Saturation ABG Base Excess VBG pH 7.28 L VBG pCO2 72.5 H* VBG HCO3 33.1 H VBG Base Excess 3.7 FiO2 Sodium 137.1 Potassium 4.9 Chloride 98 Carbon Dioxide 32 H Anion Gap 7 BUN 34 H Creatinine 1.43 H Est GFR ( Amer) > 60 Glucose 105 Calcium 9.0 Total Bilirubin 1.2 AST 45 Alkaline Phosphatase 91 C-Reactive Protein 43.8 H Total Protein 6.7 Albumin 3.6 Lipase 148.0 Urine Color Urine Appearance Urine pH Ur Specific [place] Urine Protein Urine Glucose (UA) Urine Ketones Urine Blood Urine Nitrite Ur Leukocyte Esterase Urine WBC (Auto) Urine RBC (Auto) 04/27/20 04/28/20 21:20 08:40 WBC RBC Hgb Hct MCV MCH MCHC RDW Plt Count Seg Neutrophils % Carbonic Acid 2.00 H HCO3/H2CO3 Ratio 15:1 ABG pH 7.30 L ABG pCO2 66.3 H ABG pO2 90.8 ABG HCO3 31.7 H ABG O2 Saturation 95.9 ABG Base Excess 3.0 VBG pH VBG pCO2 VBG HCO3 VBG Base Excess FiO2 3L Sodium Potassium Chloride Carbon Dioxide Anion Gap BUN Creatinine Est GFR ( Amer) Glucose Calcium Total Bilirubin AST Alkaline Phosphatase C-Reactive Protein Total Protein Albumin Lipase Urine Color YELLOW Urine Appearance CLEAR Urine pH 5.0 Ur Specific [place] 1.008 Urine Protein NEGATIVE Urine Glucose (UA) NEGATIVE Urine Ketones NEGATIVE Urine Blood NEGATIVE Urine Nitrite NEGATIVE Ur Leukocyte Esterase NEGATIVE Urine WBC (Auto) 2 Urine RBC (Auto) 1 04/27/20 04/28/20 04/28/20 21:10 03:37 03:37 Creatine Kinase 87 CK-MB (CK-2) 1.92 Troponin I 0.034 0.032 NT-Pro-B Natriuret Pep 9740 H 04/28/20 04/28/20 09:29 09:29 Creatine Kinase 74 CK-MB (CK-2) 1.97 Troponin I 0.018 NT-Pro-B Natriuret Pep EKG Comments: Twelve-lead EKG 04/27/2020. Independently viewed by me. Sinus rhythm, PAC, left ventricular hypertrophy, right axis deviation, QTC is 463 ms Chest x-ray 04/27/2020 Post CABG Blunting of left scoffs to phrenic angle chronic left pleural effusion or pleural thickening. Troponin 0.032 0.018 BNP 9740 Creatinine 1.43 Impressions: Chest X-Ray 04/27/20 20:35 IMPRESSION: Chronic blunting of left costophrenic sulcus, either indicating a chronic left pleural effusion and/or pleural thickening. copyright 2010 [employer]- All Rights Reserved Assessment & Plan - Diagnosis (1) CHF (congestive heart failure), NYHA class II Qualifiers: Congestive heart failure type: diastolic Congestive heart failure chronicity: chronic Qualified Code(s): I50.32 - Chronic diastolic (congestive) heart failure Is this a current diagnosis for this admission?: Yes Plan: Transthoracic echocardiogram August 28, 2018 had shown low normal ejection fraction estimated at 55 to 50% Right ventricle was normal in size and function. Trace mitral regurgitation and trace tricuspid regurgitation Patient appears to be mildly volume overloaded by exam. We will persist with intravenous diuretic for another 24 hours and then transition to oral diuretic probably at a higher dose compared to what he takes at home. (2) COPD exacerbation Is this a current diagnosis for this admission?: Yes Plan: Patient does have a component of COPD Agree with use of intravenous steroids He no longer smokes cigarettes Continue metoprolol tartrate 25 mg twice daily Continue furosemide 40 mg twice daily. Consider increasing dose based on clinical course during the hospital stay Will require potassium supplementation (3) Hypertension Qualifiers: Hypertension type: essential hypertension Qualified Code(s): I10 - Ess ential (primary) hypertension Is this a current diagnosis for this admission?: Yes Plan: No added salt in the diet Continue furosemide dose to be determined based on clinical course Continue metoprolol tartrate 25 mg twice daily (4) Hyperlipidemia Qualifiers: Hyperlipidemia type: unspecified Qualified Code(s): E78.5 - Hyperlipidemia, unspecified Is this a current diagnosis for this admission?: Yes (5) Coronary artery disease Qualifiers: Coronary Disease-Associated Artery/Lesion type: [place] artery [place] vs. transplanted heart: [place] heart Associated angina: without angina Qualified Code(s): I25.10 - Atherosclerotic heart disease of [place] coronary artery without angina pectoris Is this a current diagnosis for this admission?: Yes Plan: Coronary artery disease status post CABG. No symptoms suggestive of ongoing myocardial ischemia Mildly elevated troponin probably a reflection of congestive heart failure. No recent ischemic evaluation primarily based on lack of symptoms. No ischemic symptoms Continue aspirin 81 mg daily Continue atorvastatin 40 mg daily Continue metoprolol tartrate 25 mg twice daily
[2020-04-28] MEDS ORDERED: FUROSEMIDE INJ/PF 40 MG/4 ML SDV IV SCH (18:00)
[2020-04-28 18:48] LABS: CREATINE KINASE MB 2.09 ng/mL (<4.55); TROPONIN I 0.013 ng/mL
[2020-04-28] MEDS: LEVALBUTEROL HCL NEB 0.63 MG/3 ML AMPUL NEB PRN (20:14)
[2020-04-28] MEDS: METOPROLOL TARTRATE 25 MG TABLET PO SCH (22:39)
[2020-04-29] MEDS: LEVALBUTEROL HCL NEB 1.25 MG/3 ML AMPUL NEB SCH ×4 (00:44→23:50)
[2020-04-29] MEDS: IPRATROPIUM BROMIDE 0.02% NEB 0.5 MG/2.5 ML AMPUL NEB SCH ×4 (00:44→23:50)
[2020-04-29] MEDS: HEPARIN SOD (PORCINE) 5,000 UNIT/ML 1 ML VIAL SUBCUT SCH ×3 (05:43→22:08)
[2020-04-29] MEDS: PANTOPRAZOLE SODIUM 40 MG TABLET.DR PO SCH (05:43)
[2020-04-29 07:03] LABS: VENOUS BLOOD BASE EXCESS 6.2 mmol/L; VENOUS BLOOD HCO3 34.9 mmol/L (20-32); VENOUS BLOOD PH 7.32 (7.30-7.42)
[2020-04-29 07:06] LABS: VENOUS BLOOD PCO2 69.1 mmHg (35-63)
[2020-04-29 07:17] LABS: HEMATOCRIT 43.5 % (37.9-51.0); HEMOGLOBIN 13.8 g/dL (13.5-17.0); MEAN CORPUSCULAR HEMOGLOBIN 24.5 pg (27.0-33.4); MEAN CORPUSCULAR HGB CONC 31.7 g/dL (32.0-36.0); MEAN CORPUSCULAR VOLUME 77 fl (80-97); PLATELET COUNT 159 10^3/uL (150-450); RED BLOOD COUNT 5.64 10^6/uL (4.35-5.55); RED CELL DISTRIBUTION WIDTH 21.3 % (11.5-14.0); WHITE BLOOD COUNT 11.2 10^3/uL (4.0-10.5)
[2020-04-29 07:24] LABS: ANION GAP 7 (5-19); BLOOD UREA NITROGEN 38 mg/dL (7-20); CALCIUM 8.5 mg/dL (8.4-10.2); CARBON DIOXIDE 34 mmol/L (22-30); CHLORIDE 99 mmol/L (98-107); GLUCOSE 123 mg/dL (75-110); POTASSIUM 4.4 mmol/L (3.6-5.0); TRIGLYCERIDES 72 mg/dL (<150)
[2020-04-29 07:34] LABS: DIRECT LDL 92 mg/dL (<100)
[2020-04-29] MEDS: INSULIN REG, HUMAN 100 UNIT/ML 3 ML VIAL (PYX) SUBCUT SCH ×4 (07:46→22:12)
[2020-04-29] MEDS: METFORMIN HCL 500 MG TABLET PO SCH ×2 (07:49→17:29)
[2020-04-29] MEDS: BUDESONIDE NEB 0.5 MG/2 ML AMPUL NEB SCH ×2 (08:55→19:28)
[2020-04-29] MEDS: FUROSEMIDE INJ/PF 40 MG/4 ML SDV IV SCH ×2 (10:49→17:29)
[2020-04-29] MEDS: ATORVASTATIN CALCIUM 20 MG TABLET PO SCH (10:50)
[2020-04-29] MEDS: METOPROLOL TARTRATE 25 MG TABLET PO SCH ×2 (10:51→22:08)
[2020-04-29] MEDS: DOCUSATE SODIUM 100 MG CAPSULE PO SCH ×2 (10:51→17:29)
[2020-04-29] MEDS: POTASSIUM CHLORIDE 10 MEQ TABLET.ER PO SCH (10:53)
[2020-04-29] MEDS: LEVOFLOXACIN 500 MG TABLET PO SCH (10:54)
--- NOTE | 2020-04-29 18:37 | PDOC PROGRESS REPORT ---
Subjective Progress Note for:: 04/29/20 Subjective:: Patient feels well. His main complaint is the pain from his left lower extremity venous ulcer. Denies fever or chills. Denies history of sleep apnea and denies having had any sleep study in the past. Discussed his hypercapnic respiratory failure but he is adamant that he will not wear BiPAP. Reason For Visit: BILATERAL LOWER EXTREMITY EDEMA,RIGHT SIDED Physical Exam Vital Signs: Temp Pulse Resp BP Pulse Ox 98.0 F 56 L 16 114/57 L 97 04/29/20 15:00 04/29/20 16:03 04/29/20 16:03 04/29/20 15:00 04/29/20 16:03 Intake & Output 04/28/20 04/29/20 04/30/20 06:59 06:59 06:59 Intake Total 440 1350 720 Output Total 1700 Balance 440 1350 -980 Weight 91.2 kg 92.2 kg General appearance: PRESENT: no acute distress, cooperative Neck exam: ABSENT: JVD Respiratory exam: PRESENT: prolonged expiratory phas, symmetrical, unlabored. ABSENT: tachypnea, wheezes Cardiovascular exam: PRESENT: RRR, +S1, +S2. ABSENT: tachycardia GI/Abdominal exam: PRESENT: soft. ABSENT: rebound, rigid, tenderness Extremities exam: PRESENT: pedal edema, +2 edema, other - Left lower extremity venous ulcer. ABSENT: calf tenderness Neurological exam: PRESENT: alert, awake, oriented to person, oriented to place, oriented to time Results Laboratory Results: 04/29/20 06:46 04/29/20 06:46 04/29/20 04/29/20 04/29/20 06:46 06:46 06:46 WBC 11.2 H RBC 5.64 H Hgb 13.8 Hct 43.5 MCV 77 L MCH 24.5 L MCHC 31.7 L RDW 21.3 H Plt Count 159 VBG pH VBG pCO2 VBG HCO3 VBG Base Excess Sodium 139.7 Potassium 4.4 Chloride 99 Carbon Dioxide 34 H Anion Gap 7 BUN 38 H Creatinine 1.42 H Est GFR ( Amer) > 60 Glucose 123 H Calcium 8.5 Magnesium 2.0 Triglycerides 72 Cholesterol 161.40 LDL Cholesterol Direct 92 VLDL Cholesterol 14.0 HDL Cholesterol 54 TSH 0.48 04/29/20 06:46 WBC RBC Hgb Hct MCV MCH MCHC RDW Plt Count VBG pH 7.32 VBG pCO2 69.1 H* VBG HCO3 34.9 H VBG Base Excess 6.2 Sodium Potassium Chloride Carbon Dioxide Anion Gap BUN Creatinine Est GFR ( Amer) Glucose Calcium Magnesium Triglycerides Cholesterol LDL Cholesterol Direct VLDL Cholesterol HDL Cholesterol TSH 04/27/20 21:20 Clean Catch Midstream Urine Culture - Final NO GROWTH 2 DAYS 04/27/20 04/28/20 04/28/20 21:10 03:37 03:37 Creatine Kinase 87 CK-MB (CK-2) 1.92 Troponin I 0.034 0.032 NT-Pro-B Natriuret Pep 9740 H 04/28/20 04/28/20 04/28/20 09:29 09:29 18:05 Creatine Kinase 74 78 CK-MB (CK-2) 1.97 Troponin I 0.018 NT-Pro-B Natriuret Pep 04/28/20 18:05 Creatine Kinase CK-MB (CK-2) 2.09 Troponin I 0.013 NT-Pro-B Natriuret Pep Impressions: Chest X-Ray 04/27/20 20:35 IMPRESSION: Chronic blunting of left costophrenic sulcus, either indicating a chronic left pleural effusion and/or pleural thickening. copyright 2010 [employer]- All Rights Reserved Assessment and Plan - Diagnosis (1) CHF (congestive heart failure), NYHA class II Qualifiers: Congestive heart failure type: diastolic Congestive heart failure [facility]: [facility] Qualified Code(s): I50.32 - Chronic diastolic (congestive) heart failure Is this a current diagnosis for this admission?: Yes Plan: Evaluated by hal[employer] butcher. Patient follows with Dr. Jethro Mayers as outpatient. We will do IV diuresis for today and switch to p.o. diuresis tomorrow. Monitor renal function and electrolytes. Replete as needed. On KCl supplements. Strict I's and O's. (2) Acute on chronic respiratory failure with hypoxia and hypercapnia Is this a current diagnosis for this admission?: Yes Plan: Secondary to COPD. On 2 L nasal cannula at baseline. Noted to be in hypercapnic respiratory failure on blood gas today. However mentating fine. Discussed about using BiPAP for sleep but he refuses. As such we will hold off on trying to attempt to see if patient qualifies for BiPAP. (3) Pulmonary arterial hypertension Is this a current diagnosis for this admission?: Yes Plan: Secondary to COPD. On home oxygen and diuresis. (4) Venous stasis ulcer of left lower extremity Is this a current diagnosis for this admission?: Yes Plan: Stage I-II. Evaluated by radiation protection specialist nurse. Continue wound care and dressing. Elevation of leg. Compression stockings. (5) Chronic obstructive pulmonary disease Qualifiers: COPD type: unspecified COPD Qualified Code(s): J44.9 - Chronic obstructive pulmonary disease, unspecified Is this a current diagnosis for this admission?: Yes Plan: Not fully convinced that patient is currently in COPD exacerbation at this time. Will discontinue Levaquin and steroids. Continue bronchodilators. (6) Diabetes mellitus type 2 in obese Is this a current diagnosis for this admission?: Yes Plan: SSI, Accu-Cheks. Continue anti-glycemic agents. - Time Anticipated Discharge Disposition: Home, Self Care Anticipated Discharge Timeframe: within 48 hours
[2020-04-29] MEDS: LEVALBUTEROL HCL NEB 0.63 MG/3 ML AMPUL NEB PRN (19:28)
[2020-04-30] MEDS: HEPARIN SOD (PORCINE) 5,000 UNIT/ML 1 ML VIAL SUBCUT SCH ×3 (06:15→21:10)
[2020-04-30] MEDS: PANTOPRAZOLE SODIUM 40 MG TABLET.DR PO SCH (06:15)
[2020-04-30 07:00] LABS: HEMATOCRIT 44.7 % (37.9-51.0); HEMOGLOBIN 14.2 g/dL (13.5-17.0); MEAN CORPUSCULAR HEMOGLOBIN 24.5 pg (27.0-33.4); MEAN CORPUSCULAR HGB CONC 31.8 g/dL (32.0-36.0); MEAN CORPUSCULAR VOLUME 77 fl (80-97); PLATELET COUNT 171 10^3/uL (150-450); RED BLOOD COUNT 5.82 10^6/uL (4.35-5.55); WHITE BLOOD COUNT 6.1 10^3/uL (4.0-10.5)
[2020-04-30 07:27] LABS: ANION GAP 5 (5-19); BLOOD UREA NITROGEN 41 mg/dL (7-20); CALCIUM 8.5 mg/dL (8.4-10.2); CARBON DIOXIDE 37 mmol/L (22-30); CHLORIDE 96 mmol/L (98-107); GLUCOSE 89 mg/dL (75-110); POTASSIUM 4.6 mmol/L (3.6-5.0)
[2020-04-30] MEDS: IPRATROPIUM BROMIDE 0.02% NEB 0.5 MG/2.5 ML AMPUL NEB SCH ×2 (07:55→16:09)
[2020-04-30] MEDS: BUDESONIDE NEB 0.5 MG/2 ML AMPUL NEB SCH ×2 (07:55→20:26)
[2020-04-30] MEDS: LEVALBUTEROL HCL NEB 1.25 MG/3 ML AMPUL NEB SCH ×2 (07:55→16:09)
[2020-04-30] MEDS: INSULIN REG, HUMAN 100 UNIT/ML 3 ML VIAL (PYX) SUBCUT SCH ×4 (08:12→21:07)
[2020-04-30] MEDS: METFORMIN HCL 500 MG TABLET PO SCH ×2 (08:27→17:33)
[2020-04-30] MEDS: MORPHINE SULFATE 10 MG/ML INJ IV PRN ×4 (08:32→23:21)
[2020-04-30] MEDS: DOCUSATE SODIUM 100 MG CAPSULE PO SCH ×2 (11:25→17:33)
[2020-04-30] MEDS: METOPROLOL TARTRATE 25 MG TABLET PO SCH ×2 (11:25→23:13)
[2020-04-30] MEDS: ATORVASTATIN CALCIUM 20 MG TABLET PO SCH (11:25)
[2020-04-30] MEDS: FUROSEMIDE INJ/PF 40 MG/4 ML SDV IV SCH ×2 (11:26→17:33)
[2020-04-30] MEDS: POTASSIUM CHLORIDE 10 MEQ TABLET.ER PO SCH (11:26)
--- NOTE | 2020-04-30 11:29 | PDOC PROGRESS REPORT ---
Subjective Progress Note for:: 04/30/20 Subjective:: Patient is doing much better. His leg edema is decreased and his respiratory status is also improved. No chest pain is endorsed. Reason For Visit: BILATERAL LOWER EXTREMITY EDEMA,RIGHT SIDED Physical Exam Vital Signs: Temp Pulse Resp BP Pulse Ox 97.7 F 53 L 12 109/42 L 100 04/30/20 08:42 04/30/20 08:10 04/30/20 08:10 04/30/20 08:10 04/30/20 08:10 Intake & Output 04/29/20 04/30/20 05/01/20 06:59 06:59 06:59 Intake Total 1350 720 Output Total 2800 Balance 1350 -2080 Weight 92.2 kg 92.2 kg General appearance: PRESENT: no acute distress, cooperative, well-developed, well-nourished Head exam: PRESENT: atraumatic, normocephalic Eye exam: PRESENT: conjunctiva pink, EOMI Mouth exam: PRESENT: moist Neck exam: PRESENT: JVD - JVD at 8 cmH2O Respiratory exam: PRESENT: crackles - Mild crackles only at bilateral lung bases otherwise clear lung barron, symmetrical, unlabored Cardiovascular exam: PRESENT: RRR, +S1, +S2 Pulses: PRESENT: normal radial pulses GI/Abdominal exam: PRESENT: soft Rectal exam: PRESENT: deferred Neurological exam: PRESENT: alert, awake, oriented to person, oriented to time, oriented to situation Psychiatric exam: PRESENT: appropriate affect Skin exam: PRESENT: dry, intact, normal color Results Laboratory Results: 04/30/20 06:30 04/30/20 06:30 04/30/20 04/30/20 06:30 06:30 WBC 6.1 RBC 5.82 H Hgb 14.2 Hct 44.7 MCV 77 L MCH 24.5 L MCHC 31.8 L RDW 21.0 H Plt Count 171 Sodium 138.4 Potassium 4.6 Chloride 96 L Carbon Dioxide 37 H Anion Gap 5 BUN 41 H Creatinine 1.30 H Est GFR ( Amer) > 60 Glucose 89 Calcium 8.5 Magnesium 1.9 04/27/20 21:20 Clean Catch Midstream Urine Culture - Final NO GROWTH 2 DAYS 04/27/20 04/28/20 04/28/20 21:10 03:37 03:37 Creatine Kinase 87 CK-MB (CK-2) 1.92 Troponin I 0.034 0.032 NT-Pro-B Natriuret Pep 9740 H 04/28/20 04/28/20 04/28/20 09:29 09:29 18:05 Creatine Kinase 74 78 CK-MB (CK-2) 1.97 Troponin I 0.018 NT-Pro-B Natriuret Pep 04/28/20 18:05 Creatine Kinase CK-MB (CK-2) 2.09 Troponin I 0.013 NT-Pro-B Natriuret Pep Impressions: Chest X-Ray 04/27/20 20:35 IMPRESSION: Chronic blunting of left costophrenic sulcus, either indicating a chronic left pleural effusion and/or pleural thickening. copyright 2011 [employer]- All Rights Reserved Assessment & Plan - Diagnosis (1) CHF (congestive heart failure), NYHA class II Qualifiers: Congestive heart failure type: diastolic Congestive heart failure chronicity: chronic Qualified Code(s): I50.32 - Chronic diastolic (congestive) heart failure Is this a current diagnosis for this admission?: Yes Plan: He has made good progress Approaching euvolemia May need a higher dose of furosemide on discharge. I emphasized strict adherence to salt free diet. I suspect occasional dietary indiscretion may get him in trouble. (2) COPD exacerbation Is this a current diagnosis for this admission?: Yes Plan: Is not actively wheezing but he is known to have severe COPD. Does not smoke cigarettes. (3) Hypertension Qualifiers: Hypertension type: essential hypertension Qualified Code(s): I10 - Essential (primary) hypertension Is this a current diagnosis for this admission?: Yes Plan: Continue present regimen for hypertension. No changes made today. Emphasized salt avoidance. (4) Hyperlipidemia Qualifiers: Hyperlipidemia type: unspecified Qualified Code(s): E78.5 - Hyperlipidemia, unspecified Is this a current diagnosis for this admission?: Yes Plan: Continue statin as he has coronary artery disease and status post CABG. (5) Coronary artery disease Qualifiers: Coronary Disease-Associated Artery/Lesion type: [place] artery [place] vs. transplanted heart: [place] heart Associated angina: without angina Qualified Code(s): I25.10 - Atherosclerotic heart disease of [place] coronary artery without angina pectoris Is this a current diagnosis for this admission?: Yes - Notes Notes: In terms of cardiac medications and prescription continue atorvastatin 20 mg daily Continue metoprolol succinate 25 mg twice daily Continue aspirin 81 mg daily
[2020-04-30] MEDS: MAGNESIUM HYDROXIDE SUSP 30 ML UDCUP PO PRN (17:44)
--- NOTE | 2020-04-30 18:15 | PDOC PROGRESS REPORT ---
Subjective Progress Note for:: 04/30/20 Subjective:: Patient is doing well. Denies any shortness of breath or chest pain today. Denies fever or chills. Reason For Visit: BILATERAL LOWER EXTREMITY EDEMA,RIGHT SIDED Physical Exam Vital Signs: Temp Pulse Resp BP Pulse Ox 97.8 F 57 L 16 115/62 96 04/30/20 15:18 04/30/20 16:11 04/30/20 16:11 04/30/20 15:18 04/30/20 16:11 Intake & Output 04/29/20 04/30/20 05/01/20 06:59 06:59 06:59 Intake Total 1350 720 600 Output Total 2800 1675 Balance 1350 -2080 -1075 Weight 92.2 kg 92.2 kg General appearance: PRESENT: no acute distress, cooperative Neck exam: ABSENT: JVD Respiratory exam: PRESENT: clear to auscultation celi, unlabored. ABSENT: tachypnea, wheezes Cardiovascular exam: PRESENT: +S1, +S2. ABSENT: tachycardia Neurological exam: PRESENT: alert, awake Results Laboratory Results: 04/30/20 06:30 04/30/20 06:30 04/30/20 04/30/20 06:30 06:30 WBC 6.1 RBC 5.82 H Hgb 14.2 Hct 44.7 MCV 77 L MCH 24.5 L MCHC 31.8 L RDW 21.0 H Plt Count 171 Sodium 138.4 Potassium 4.6 Chloride 96 L Carbon Dioxide 37 H Anion Gap 5 BUN 41 H Creatinine 1.30 H Est GFR ( Amer) > 60 Glucose 89 Calcium 8.5 Magnesium 1.9 04/27/20 04/28/20 04/28/20 21:10 03:37 03:37 Creatine Kinase 87 CK-MB (CK-2) 1.92 Troponin I 0.034 0.032 NT-Pro-B Natriuret Pep 9740 H 04/28/20 04/28/20 04/28/20 09:29 09:29 18:05 Creatine Kinase 74 78 CK-MB (CK-2) 1.97 Troponin I 0.018 NT-Pro-B Natriuret Pep 04/28/20 18:05 Creatine Kinase CK-MB (CK-2) 2.09 Troponin I 0.013 NT-Pro-B Natriuret Pep Impressions: Chest X-Ray 04/27/20 20:35 IMPRESSION: Chronic blunting of left costophrenic sulcus, either indicating a chronic left pleural effusion and/or pleural thickening. copyright 2010 [employer]- All Rights Reserved Assessment and Plan - Diagnosis (1) CHF (congestive heart failure), NYHA class II Qualifiers: Congestive heart failure type: diastolic Congestive heart failure chronicity: chronic Qualified Code(s): I50.32 - Chronic diastolic (congestive) heart failure Is this a current diagnosis for this admission?: Yes Plan: Evaluated by bulk station operator. Patient follows with Dr. Jethro Mayers as outpatient. We will do IV diuresis for today and switch to p.o. diuresis tomorrow. Monitor renal function and electrolytes. Replete as needed. On KCl supplements. Strict I's and O's. (2) Acute on chronic respiratory failure with hypoxia and hypercapnia Is this a current diagnosis for this admission?: Yes (3) Pulmonary arterial hypertension Is this a current diagnosis for this admission?: Yes (4) Venous stasis ulcer of left lower extremity Is this a current diagnosis for this admission?: Yes Plan: Stage I-II. Evaluated by medical imaging specialist nurse. Collagen kateryna applied. Continue wound care and dressing. Elevation of leg. Compression stockings. (5) Chronic obstructive pulmonary disease Qualifiers: COPD type: unspecified COPD Qualified Code(s): J44.9 - Chronic obstructive pulmonary disease, unspecified Is this a current diagnosis for this admission?: Yes (6) Diabetes mellitus type 2 in obese Is this a current diagnosis for this admission?: Yes - Time Time Spent with patient: Less than 15 minutes Anticipated Discharge Disposition: Home, Self Care Anticipated Discharge Timeframe: within 48 hours
[2020-05-01] MEDS: LEVALBUTEROL HCL NEB 1.25 MG/3 ML AMPUL NEB SCH ×3 (00:31→15:43)
[2020-05-01] MEDS: IPRATROPIUM BROMIDE 0.02% NEB 0.5 MG/2.5 ML AMPUL NEB SCH ×3 (00:31→15:43)
[2020-05-01] MEDS: HEPARIN SOD (PORCINE) 5,000 UNIT/ML 1 ML VIAL SUBCUT SCH (06:04)
[2020-05-01] MEDS: PANTOPRAZOLE SODIUM 40 MG TABLET.DR PO SCH (06:05)
[2020-05-01 06:56] LABS: BLOOD UREA NITROGEN 46 mg/dL (7-20); CALCIUM 8.9 mg/dL (8.4-10.2); CHLORIDE 88 mmol/L (98-107); GLUCOSE 121 mg/dL (75-110)
[2020-05-01 07:02] LABS: ANION GAP 9 (5-19); CARBON DIOXIDE 38 mmol/L (22-30)
[2020-05-01 07:21] LABS: POTASSIUM 5.6 mmol/L (3.6-5.0)
[2020-05-01] MEDS: INSULIN REG, HUMAN 100 UNIT/ML 3 ML VIAL (PYX) SUBCUT SCH ×4 (08:06→21:09)
[2020-05-01] MEDS: METFORMIN HCL 500 MG TABLET PO SCH ×2 (08:08→17:23)
[2020-05-01] MEDS: BUDESONIDE NEB 0.5 MG/2 ML AMPUL NEB SCH ×2 (08:16→20:51)
[2020-05-01] MEDS: DOCUSATE SODIUM 100 MG CAPSULE PO SCH ×2 (11:33→17:23)
[2020-05-01] MEDS: FUROSEMIDE 40 MG TABLET PO SCH (11:33)
[2020-05-01] MEDS: METOPROLOL TARTRATE 25 MG TABLET PO SCH ×2 (11:34→21:07)
[2020-05-01] MEDS: ATORVASTATIN CALCIUM 20 MG TABLET PO SCH (11:34)
[2020-05-01] MEDS ORDERED: POLYETHYLENE GLYCOL 3350 POWDER 17 GM/1 PACKET PO ONE (12:30)
[2020-05-01 14:21] LABS: VENOUS BLOOD BASE EXCESS 11.8 mmol/L; VENOUS BLOOD HCO3 41.7 mmol/L (20-32); VENOUS BLOOD PH 7.34 (7.30-7.42)
[2020-05-01 14:23] LABS: VENOUS BLOOD PCO2 78.5 mmHg (35-63)
--- NOTE | 2020-05-01 16:24 | PDOC PROGRESS REPORT ---
Subjective Progress Note for:: 05/01/20 Subjective:: Patient feels much better today. His swelling in his leg is also going down. He denies any shortness of breath. Remains adamant on not getting BiPAP for home. Reason For Visit: BILATERAL LOWER EXTREMITY EDEMA,RIGHT SIDED Physical Exam Vital Signs: Temp Pulse Resp BP Pulse Ox 98.2 F 63 14 110/50 L 98 05/01/20 11:16 05/01/20 15:45 05/01/20 15:58 05/01/20 11:16 05/01/20 15:58 Intake & Output 04/30/20 05/01/20 05/02/20 06:59 06:59 06:59 Intake Total 720 1580 360 Output Total 2800 3375 400 Balance -2079 -1794 -40 Weight 92.2 kg 93.3 kg General appearance: PRESENT: no acute distress, cooperative Neck exam: ABSENT: JVD Respiratory exam: PRESENT: symmetrical, unlabored, wheezes - Mild. ABSENT: tachypnea Cardiovascular exam: PRESENT: RRR, +S1, +S2. ABSENT: tachycardia GI/Abdominal exam: PRESENT: soft. ABSENT: rebound, rigid, tenderness Extremities exam: PRESENT: +1 edema Neurological exam: PRESENT: alert, awake, oriented to person, oriented to place, oriented to time, oriented to situation Results Laboratory Results: 04/30/20 06:30 05/01/20 14:58 05/01/20 05/01/20 05/01/20 04:54 13:54 13:54 VBG pH 7.34 VBG pCO2 78.5 H* VBG HCO3 41.7 H VBG Base Excess 11.8 Sodium 135.4 L Cancelled Potassium 5.6 H D Cancelled Chloride 88 L Cancelled Carbon Dioxide 38 H Cancelled Anion Gap 9 Cancelled BUN 46 H Cancelled Creatinine 1.37 H Cancelled Est GFR ( Amer) > 60 Cancelled Est GFR (Non-Af Amer) Cancelled Glucose 121 H Cancelled Calcium 8.9 Cancelled Magnesium 2.4 H 05/01/20 14:58 VBG pH VBG pCO2 VBG HCO3 VBG Base Excess Sodium Cancelled Potassium Cancelled Chloride Cancelled Carbon Dioxide Cancelled Anion Gap Cancelled BUN Cancelled Creatinine Cancelled Est GFR ( Amer) Cancelled Est GFR (Non-Af Amer) Cancelled Glucose Cancelled Calcium Cancelled Magnesium 09/09/20 09/10/20 09/10/20 21:10 03:37 03:37 Creatine Kinase 87 CK-MB (CK-2) 1.92 Troponin I 0.034 0.032 NT-Pro-B Natriuret Pep 9740 H 04/28/20 04/28/20 04/28/20 09:29 09:29 18:05 Creatine Kinase 74 78 CK-MB (CK-2) 1.97 Troponin I 0.018 NT-Pro-B Natriuret Pep 04/28/20 18:05 Creatine Kinase CK-MB (CK-2) 2.09 Troponin I 0.013 NT-Pro-B Natriuret Pep Impressions: Chest X-Ray 04/27/20 20:35 IMPRESSION: Chronic blunting of left costophrenic sulcus, either indicating a chronic left pleural effusion and/or pleural thickening. copyright 2010 [employer]- All Rights Reserved Assessment and Plan - Diagnosis (1) CHF (congestive heart failure), NYHA class II Qualifiers: Congestive heart failure type: diastolic Congestive heart failure chronicity: chronic Qualified Code(s): I50.32 - Chronic diastolic (congestive) heart failure Is this a current diagnosis for this admission?: Yes Plan: Evaluated by physician industrial. Patient follows with Dr. Jethro Mayers as outpatient. IV Lasix discontinued. Placed on daily p.o. Lasix today. Discontinue KCl supplementation given hyperkalemia and repeat BMP this afternoon. Diuresing very well. Swelling improved Strict I's and O's. (2) Acute on chronic respiratory failure with hypoxia and hypercapnia Is this a current diagnosis for this admission?: Yes Plan: Secondary to COPD. On 2 L nasal cannula at baseline. Hypercapnia is compensated. Continues to mentate fine. Discussed about using BiPAP for sleep giving chronic CO2 retention but he refuses. As such we will hold off on trying to attempt to see if patient qualifies for BiPAP. Sekou humphreys (3) Pulmonary arterial hypertension Is this a current diagnosis for this admission?: Yes Plan: Secondary to COPD. On home oxygen and diuresis. (4) Venous stasis ulcer of left lower extremity Is this a current diagnosis for this admission?: Yes Plan: Stage I-II. Evaluated by health care specialist nurse. Collagen kateryna applied. Continue wound care and dressing. Elevation of leg. Compression stockings. (5) Chronic obstructive pulmonary disease Qualifiers: COPD type: unspecified COPD Qualified Code(s): J44.9 - Chronic obstructive pulmonary disease, unspecified Is this a current diagnosis for this admission?: Yes Plan: Continue bronchodilators. (6) Diabetes mellitus type 2 in obese Is this a current diagnosis for this admission?: Yes Plan: SSI, Accu-Cheks. Continue anti-glycemic agents. - Time Time Spent with patient: Less than 15 minutes Anticipated Discharge Disposition: Home, Self Care Anticipated Discharge Timeframe: within 24 hours
[2020-05-01 17:00] LABS: BLOOD UREA NITROGEN 41 mg/dL (7-20); CALCIUM 8.5 mg/dL (8.4-10.2); CHLORIDE 88 mmol/L (98-107); GLUCOSE 89 mg/dL (75-110); POTASSIUM 4.7 mmol/L (3.6-5.0)
[2020-05-01 17:12] LABS: ANION GAP 3 (5-19)
[2020-05-01 17:13] LABS: CARBON DIOXIDE 45 mmol/L (22-30)
[2020-05-01] MEDS: MAGNESIUM HYDROXIDE SUSP 30 ML UDCUP PO PRN (17:26)
[2020-05-01] MEDS: IPRATROPIUM/ALBUTEROL 0.5-2.5 MG/3 ML AMPUL NEB SCH ×2 (17:34→20:51)
[2020-05-01] MEDS: MORPHINE SULFATE 10 MG/ML INJ IV PRN (18:46)
[2020-05-02] MEDS: IPRATROPIUM BROMIDE 0.02% NEB 0.5 MG/2.5 ML AMPUL NEB SCH ×2 (00:20→07:49)
[2020-05-02] MEDS: IPRATROPIUM/ALBUTEROL 0.5-2.5 MG/3 ML AMPUL NEB SCH ×3 (03:03→13:35)
[2020-05-02] MEDS: PANTOPRAZOLE SODIUM 40 MG TABLET.DR PO SCH (06:00)
[2020-05-02 07:00] LABS: ARTERIAL BLOOD BASE EXCESS 11.8 mmol/L; ARTERIAL BLOOD H2CO3 1.98 mmol/L (1.05-1.35); ARTERIAL BLOOD HCO3 39.8 mmol/L (20-24); ARTERIAL BLOOD O2 SATURATION 77.3 % (94-98); ARTERIAL BLOOD PCO2 65.8 mmHg (35-45); ARTERIAL BLOOD PO2 43.2 mmHg (80-100); ARTERIAL BLOOD TOTAL CO2 41.9 mmol/L (23-27)
[2020-05-02 07:23] LABS: ANION GAP 5 (5-19); BLOOD UREA NITROGEN 41 mg/dL (7-20); CALCIUM 8.9 mg/dL (8.4-10.2); CARBON DIOXIDE 39 mmol/L (22-30); CHLORIDE 91 mmol/L (98-107); GLUCOSE 90 mg/dL (75-110); POTASSIUM 5.2 mmol/L (3.6-5.0)
[2020-05-02 07:32] LABS: ARTERIAL BLOOD FIO2 ROOM AIR
[2020-05-02] MEDS: BUDESONIDE NEB 0.5 MG/2 ML AMPUL NEB SCH (07:49)
[2020-05-02] MEDS: METFORMIN HCL 500 MG TABLET PO SCH (07:58)
--- NOTE | 2020-05-02 11:04 | PDOC DISCHARGE SUMMARY ---
Impression - Admit/DC Date/PCP Admission Date/Primary Care Provider: 04/28/20 02:27 ELTON SHANKAR PA-C Discharge Date: 05/02/20 - Discharge Diagnosis (1) CHF (congestive heart failure), NYHA class II Is this a current diagnosis for this admission?: Yes (2) Acute on chronic respiratory failure with hypoxia and hypercapnia Is this a current diagnosis for this admission?: Yes (3) Pulmonary arterial hypertension Is this a current diagnosis for this admission?: Yes (4) Venous stasis ulcer of left lower extremity Is this a current diagnosis for this admission?: Yes (5) Chronic obstructive pulmonary disease Is this a current diagnosis for this admission?: Yes (6) Diabetes mellitus type 2 in obese Is this a current diagnosis for this admission?: Yes - Additional Information Resuscitation Status: Full Code Discharge Diet: Cardiac, Diabetic Discharge Activity: Activity As Tolerated, Balance Activity w/Rest, Weigh Daily Referrals: Wound Care [Provider Group] MAURY JACINTO MD [ACTIVE STAFF] - PAULIE MAYERS MD [ACTIVE STAFF] - FREDERICK RODRIGUEZ FNP-C [ALLIED HEALTH PROFESSIONAL] - Follow up as needed Prescriptions: Ipratropium/Albuterol Sulfate [Duoneb 3 ml Ampul] 1 vial NEB Q6HP PRN #60 ml PRN Reason: Furosemide [Lasix 20 mg Tablet] 60 mg PO QAM 30 Days #90 tablet Budesonide [Pulmicort 90 mcg Flexhaler] 1 inh IH DAILY #1 aer.[email or web address] Home Medications: Atorvastatin Calcium [Lipitor 20 mg Tablet] 20 mg PO DAILY 06/25/18 Metformin HCl [Glucophage 500 mg Tablet] 500 mg PO BID 06/25/18 Metoprolol Tartrate [Lopressor 25 mg Tablet] 25 mg PO DAILY 06/25/18 Budesonide [Pulmicort 90 mcg Flexhaler] 1 inh IH DAILY #1 aer.pow.ba 05/02/20 Furosemide [Lasix 20 mg Tablet] 60 mg PO QAM 30 Days #90 tablet 05/02/20 Ipratropium/Albuterol Sulfate [Duoneb 3 ml Ampul] 1 vial NEB Q6HP PRN #60 ml 05/02/20 History of Present Illiness History of Present Illness: According to admitting provider: NAVYA MELTON is a 64 year old male who presented to the emergency room with a 4-day history of lower extremity swelling. He admits gradually worsening (now severe) swelling of his bilateral lower extremities over the last 4 days. The swelling has been greater on the left side than on the right side and has been accompanied by bullous formations on the left lower leg which have opened and drained spontaneously. His leg swelling has been associated with mildly worsened exertional dyspnea. He denies other associated or accompanying signs and symptoms. He denies prior similar episodes. He has not identified any aggravating or ameliorating factors for his lower extremity swelling. In the emergency room he was found to have an elevated BNP and was noted to be mildly hypoxic however he is normally on home oxygen at 2.5 L/min via nasal cannula. He was treated for a brief period of time with BiPAP in the ER. He was subsequently admitted to the hospital for further evaluation and treatment. Hospital Course Hospital Course: (1) CHF (congestive heart failure), NYHA class II Qualifiers: Congestive heart failure type: diastolic Congestive heart failure chronicity: chronic Qualified Code(s): I50.32 - Chronic diastolic (congestive) heart failure Is this a current diagnosis for this admission?: Yes Plan: Evaluated by promotions associate. Patient follows with Dr. Paulie Mayers as outpatient. Received IV Lasix in the hospital then transitioned to p.o. Lasix. Contrary to his med rec, patient states he takes only 40 mg of p.o. Lasix daily so I have increased his home dose to 60 mg daily. Discontinue KCl supplementation given hyperkalemia Diuresing very well. Swelling improved Outpatient follow-up with his primary promotions associate Dr. Mayers. (2) Acute on chronic respiratory failure with hypoxia and hypercapnia Is this a current diagnosis for this admission?: Yes Plan: Secondary to COPD. On 2 L nasal cannula at baseline at home. Has his home O2. Hypercapnia is compensated. Continues to mentate fine. Refuses being set up with home BiPAP. Who follow-up with Dr. Jacinto (3) Pulmonary arterial hypertension Is this a current diagnosis for this admission?: Yes Plan: Secondary to COPD. On home oxygen and diuresis. (4) Venous stasis ulcer of left lower extremity Is this a current diagnosis for this admission?: Yes Plan: Stage I-II. Evaluated by visitor services specialist nurse while in the hospital. Judith collagen pads recommended for wound dressing. He will be following up with wound care. Instructed to keep leg elevated and to get compression stockings. (5) Chronic obstructive pulmonary disease Qualifiers: COPD type: unspecified COPD Qualified Code(s): J44.9 - Chronic obstructive pulmonary disease, unspecified Is this a current diagnosis for this admission?: Yes Plan: Continue bronchodilators. Given refills for his duo nebs. Starting patient on Pulmicort inhaler. (6) Diabetes mellitus type 2 in obese Is this a current diagnosis for this admission?: Yes Plan: Continue anti-glycemic agents. Physical Exam Vital Signs: Temp Pulse Resp BP Pulse Ox 97.9 F 61 19 96/57 L 97 05/02/20 08:21 05/02/20 08:21 05/02/20 08:21 05/02/20 08:21 05/02/20 08:21 Intake & Output 05/01/20 05/02/20 05/03/20 06:59 06:59 06:59 Intake Total 1580 1780 Output Total 3375 2000 Balance -1795 -220 Weight 93.3 kg 93.5 kg General appearance: PRESENT: no acute distress, cooperative Neck exam: ABSENT: JVD Respiratory exam: PRESENT: symmetrical, unlabored, wheezes - very mild. ABSENT: tachypnea Cardiovascular exam: PRESENT: +S1, +S2. ABSENT: tachycardia GI/Abdominal exam: PRESENT: soft. ABSENT: tenderness Extremities exam: PRESENT: +1 edema Neurological exam: PRESENT: alert, awake, oriented to person, oriented to place, oriented to time Results Laboratory Results: WBC 6.1 10^3/uL (4.0-10.5) 04/30/20 06:30 RBC 5.82 10^6/uL (4.35-5.55) H 04/30/20 06:30 Hgb 14.2 g/dL (13.5-17.0) 04/30/20 06:30 Hct 44.7 % (37.9-51.0) 04/30/20 06:30 MCV 77 fl (80-97) L 04/30/20 06:30 MCH 24.5 pg (27.0-33.4) L 04/30/20 06:30 MCHC 31.8 g/dL (32.0-36.0) L 04/30/20 06:30 RDW 21.0 % (11.5-14.0) H 04/30/20 06:30 Plt Count 171 10^3/uL (150-450) 04/30/20 06:30 Lymph % (Auto) 21.4 % (13-45) 04/27/20 21:10 Craig % (Auto) 11.7 % (3-13) 04/27/20 21:10 Eos % (Auto) 2.0 % (0-6) 04/27/20 21:10 Baso % (Auto) 0.7 % (0-2) 04/27/20 21:10 Absolute Neuts (auto) 3.9 10^3/uL (1.7-8.2) 04/27/20 21:10 Absolute Lymphs (auto) 1.3 10^3/uL (0.5-4.7) 04/27/20 21:10 Absolute Monos (auto) 0.7 10^3/uL (0.1-1.4) 04/27/20 21:10 Absolute Eos (auto) 0.1 10^3/uL (0.0-0.6) 04/27/20 21:10 Absolute Basos (auto) 0.0 10^3/uL (0.0-0.2) 04/27/20 21:10 Seg Neutrophils % 64.2 % (42-78) 04/27/20 21:10 Carbonic Acid 1.98 mmol/L (1.05-1.35) H 05/02/20 06:35 HCO3/H2CO3 Ratio 20:1 05/02/20 06:35 ABG pH 7.40 (7.35-7.45) 05/02/20 06:35 ABG pCO2 65.8 mmHg (35-45) H 05/02/20 06:35 ABG pO2 43.2 mmHg (80-100) L 05/02/20 06:35 ABG HCO3 39.8 mmol/L (20-24) H 05/02/20 06:35 ABG Total CO2 41.9 mmol/L (23-27) H 05/02/20 06:35 ABG O2 Saturation 77.3 % (94-98) L 05/02/20 06:35 ABG Base Excess 11.8 mmol/L 05/02/20 06:35 VBG pH 7.34 (7.30-7.42) 05/01/20 13:54 VBG pCO2 78.5 mmHg (35-63) H* 05/01/20 13:54 VBG HCO3 41.7 mmol/L (20-32) H 05/01/20 13:54 VBG Base Excess 11.8 mmol/L 05/01/20 13:54 FiO2 ROOM AIR 05/02/20 06:35 Sodium 134.8 mmol/L (137-145) L 05/02/20 06:09 Potassium 5.2 mmol/L (3.6-5.0) H 05/02/20 06:09 Chloride 91 mmol/L (98-107) L 05/02/20 06:09 Carbon Dioxide 39 mmol/L (22-30) H 05/02/20 06:09 Anion Gap 5 (5-19) 05/02/20 06:09 BUN 41 mg/dL (7-20) H 05/02/20 06:09 Creatinine 1.25 mg/dL (0.52-1.25) 05/02/20 06:09 Est GFR ( Amer) > 60 (>60) 05/02/20 06:09 Est GFR (Non-Af Amer) Cancelled 05/01/20 14:58 Est GFR (MDRD) Non-Af 58 (>60) L 05/02/20 06:09 Glucose 90 mg/dL (75-110) 05/02/20 06:09 POC Glucose 88 mg/dL (70-110) 05/02/20 06:08 Calcium 8.9 mg/dL (8.4-10.2) 05/02/20 06:09 Magnesium 2.4 mg/dL (1.6-2.3) H 05/01/20 04:54 Total Bilirubin 1.2 mg/dL (0.2-1.3) 04/27/20 21:10 Direct Bilirubin 0.6 mg/dL (0.0-0.4) H 04/27/20 21:10 Neonat Total Bilirubin Not Reportable 04/27/20 21:10 Neonat Direct Bilirubin Not Reportable 04/27/20 21:10 Neonat Indirect Bili Not Reportable 04/27/20 21:10 AST 45 U/L (17-59) 04/27/20 21:10 ALT 30 U/L (<50) 04/27/20 21:10 Alkaline Phosphatase 91 U/L (38-126) 04/27/20 21:10 Creatine Kinase 78 U/L (55-170) 04/28/20 18:05 CK-MB (CK-2) 2.09 ng/mL (<4.55) 04/28/20 18:05 Troponin I 0.013 ng/mL 04/28/20 18:05 C-Reactive Protein 43.8 mg/L (<10.0) H 04/27/20 21:10 NT-Pro-B Natriuret Pep 9740 pg/mL (<125) H 04/27/20 21:10 Total Protein 6.7 g/dL (6.3-8.2) 04/27/20 21:10 Albumin 3.6 g/dL (3.5-5.0) 04/27/20 21:10 Triglycerides 72 mg/dL (<150) 04/29/20 06:46 Cholesterol 161.40 mg/dL (0-200) 04/29/20 06:46 LDL Cholesterol Direct 92 mg/dL (<100) 04/29/20 06:46 VLDL Cholesterol 14.0 mg/dL (10-31) 04/29/20 06:46 HDL Cholesterol 54 mg/dL (>40) 04/29/20 06:46 Lipase 148.0 U/L (23-300) 04/27/20 21:10 EGFR Cancelled 05/01/20 14:58 TSH 0.48 uIU/mL (0.47-4.68) 04/29/20 06:46 Urine Color YELLOW 04/27/20 21:20 Urine Appearance CLEAR 04/27/20 21:20 Urine pH 5.0 (5.0-9.0) 04/27/20 21:20 Ur Specific [place] 1.008 04/27/20 21:20 Urine Protein NEGATIVE mg/dL (NEGATIVE) 04/27/20 21:20 Urine Glucose (UA) NEGATIVE mg/dL (NEGATIVE) 04/27/20 21:20 Urine Ketones NEGATIVE mg/dL (NEGATIVE) 04/27/20 21:20 Urine Blood NEGATIVE (NEGATIVE) 04/27/20 21:20 Urine Nitrite NEGATIVE (NEGATIVE) 04/27/20 21:20 Urine Bilirubin NEGATIVE (NEGATIVE) 04/27/20 21:20 Urine Urobilinogen 2.0 mg/dL (<2.0) H 04/27/20 21:20 Ur Leukocyte Esterase NEGATIVE (NEGATIVE) 04/27/20 21:20 Urine WBC (Auto) 2 /HPF 04/27/20 21:20 Urine RBC (Auto) 1 /HPF 04/27/20 21:20 Urine Bacteria (Auto) TRACE /HPF 04/27/20 21:20 Urine Mucus (Auto) RARE /LPF 04/27/20 21:20 Urine Ascorbic Acid NEGATIVE (NEGATIVE) 04/27/20 21:20 04/27/20 04/28/20 04/28/20 21:10 03:37 09:29 CK-MB (CK-2) 1.92 1.97 Troponin I 0.034 0.032 0.018 NT-Pro-B Natriuret Pep 9740 H 04/28/20 18:05 CK-MB (CK-2) 2.09 Troponin I 0.013 NT-Pro-B Natriuret Pep Impressions: Chest X-Ray 04/27/20 20:35 IMPRESSION: Chronic blunting of left costophrenic sulcus, either indicating a chronic left pleural effusion and/or pleural thickening. copyright 2010 [employer]- All Rights Reserved Plan Time Spent: Greater than 30 Minutes Stroke Is this a Stroke Patient?: No Acute Heart Failure Is this a Heart Failure Patient?: Yes Documentation of LVEF assessment?: Yes LVEF: LVEF Greater Than 40% Anticoagulant Therapy: N/A
[2020-05-02] MEDS: DOCUSATE SODIUM 100 MG CAPSULE PO SCH (11:15)
[2020-05-02] MEDS: FUROSEMIDE 40 MG TABLET PO SCH (11:16)
[2020-05-02] MEDS: INSULIN REG, HUMAN 100 UNIT/ML 3 ML VIAL (PYX) SUBCUT SCH ×2 (11:20→11:22)
[2020-05-02] MEDS: METOPROLOL TARTRATE 25 MG TABLET PO SCH (11:25)
[2020-05-02] MEDS: ATORVASTATIN CALCIUM 20 MG TABLET PO SCH (11:27)
[2020-05-02 12:52] VITALS: BP 125/45
--- NOTE | 2020-05-02 14:17 | PDOC PROGRESS REPORT ---
Subjective Progress Note for:: 05/02/20 Subjective:: Patient is doing much better. His leg edema is decreased and his respiratory status is also improved. No chest pain is endorsed. He still has some ulcers on the left leg which are painful Reason For Visit: BILATERAL LOWER EXTREMITY EDEMA,RIGHT SIDED Physical Exam Vital Signs: Temp Pulse Resp BP Pulse Ox 98.0 F 82 15 125/45 L 68 L 05/02/20 13:45 05/02/20 13:45 05/02/20 13:45 05/02/20 11:20 05/02/20 13:45 Intake & Output 05/01/20 05/02/20 05/03/20 06:59 06:59 06:59 Intake Total 1580 1780 Output Total 3375 1999 Balance -1795 -220 Weight 93.3 kg 93.5 kg General appearance: PRESENT: no acute distress, cooperative, well-developed, well-nourished Head exam: PRESENT: atraumatic, normocephalic Eye exam: PRESENT: EOMI Mouth exam: PRESENT: moist Respiratory exam: PRESENT: decreased breath sounds, prolonged expiratory phas, symmetrical, unlabored Cardiovascular exam: PRESENT: RRR, +S1, +S2 Pulses: PRESENT: normal radial pulses GI/Abdominal exam: PRESENT: soft Rectal exam: PRESENT: deferred Neurological exam: PRESENT: alert, awake, oriented to person, oriented to place, oriented to time, oriented to situation Psychiatric exam: PRESENT: appropriate affect Skin exam: PRESENT: dry, intact Results Laboratory Results: 04/30/20 06:30 05/02/20 06:09 05/01/20 05/01/20 05/01/20 13:54 13:54 14:58 Carbonic Acid HCO3/H2CO3 Ratio ABG pH ABG pCO2 ABG pO2 ABG HCO3 ABG O2 Saturation ABG Base Excess VBG pH 7.34 VBG pCO2 78.5 H* VBG HCO3 41.7 H VBG Base Excess 11.8 FiO2 Sodium Cancelled Cancelled Potassium Cancelled Cancelled Chloride Cancelled Cancelled Carbon Dioxide Cancelled Cancelled Anion Gap Cancelled Cancelled BUN Cancelled Cancelled Creatinine Cancelled Cancelled Est GFR ( Amer) Cancelled Cancelled Est GFR (Non-Af Amer) Cancelled Cancelled Glucose Cancelled Cancelled Calcium Cancelled Cancelled 05/01/20 05/02/20 05/02/20 16:20 06:09 06:35 Carbonic Acid 1.98 H HCO3/H2CO3 Ratio 20:1 ABG pH 7.40 ABG pCO2 65.8 H ABG pO2 43.2 L ABG HCO3 39.8 H ABG O2 Saturation 77.3 L ABG Base Excess 11.8 VBG pH VBG pCO2 VBG HCO3 VBG Base Excess FiO2 ROOM AIR Sodium 136.1 L 134.8 L Potassium 4.7 5.2 H Chloride 88 L 91 L Carbon Dioxide 45 H* 39 H Anion Gap 3 L 5 BUN 41 H 41 H Creatinine 1.50 H 1.25 Est GFR ( Amer) 57 L > 60 Est GFR (Non-Af Amer) Glucose 89 90 Calcium 8.5 8.9 04/27/20 04/28/20 04/28/20 21:10 03:37 03:37 Creatine Kinase 87 CK-MB (CK-2) 1.92 Troponin I 0.034 0.032 NT-Pro-B Natriuret Pep 9740 H 04/28/20 04/28/20 04/28/20 09:29 09:29 18:05 Creatine Kinase 74 78 CK-MB (CK-2) 1.97 Troponin I 0.018 NT-Pro-B Natriuret Pep 04/28/20 18:05 Creatine Kinase CK-MB (CK-2) 2.09 Troponin I 0.013 NT-Pro-B Natriuret Pep Impressions: Chest X-Ray 04/27/20 20:35 IMPRESSION: Chronic blunting of left costophrenic sulcus, either indicating a chronic left pleural effusion and/or pleural thickening. copyright 2010 [employer]- All Rights Reserved Assessment & Plan - Diagnosis (1) CHF (congestive heart failure), NYHA class II Qualifiers: Congestive heart failure type: diastolic Congestive heart failure chronicity: chronic Qualified Code(s): I50.32 - Chronic diastolic (congestive) heart failure Is this a current diagnosis for this admission?: Yes Plan: He has made good progress Euvolemic on exam today Minimal lower extremity edema. More pronounced on the left lower extremity. May need a higher dose of furosemide on discharge. (2) COPD exacerbation Is this a current diagnosis for this admission?: Yes Plan: Is not actively wheezing but he is known to have severe COPD. Does not smoke c igarettes. He will benefit from pulmonary follow-up to (3) Hypertension Qualifiers: Hypertension type: essential hypertension Qualified Code(s): I10 - Essential (primary) hypertension Is this a current diagnosis for this admission?: Yes Plan: Continue present regimen for hypertension. No changes made today. Emphasized salt avoidance. (4) Hyperlipidemia Qualifiers: Hyperlipidemia type: unspecified Qualified Code(s): E78.5 - Hyperlipidemia, unspecified Is this a current diagnosis for this admission?: Yes (5) Coronary artery disease Qualifiers: Coronary Disease-Associated Artery/Lesion type: [place] artery [place] vs. transplanted heart: [place] heart Associated angina: without angina Qualified Code(s): I25.10 - Atherosclerotic heart disease of [place] coronary artery without angina pectoris Is this a current diagnosis for this admission?: Yes Plan: No chest pain. In recent follow-ups is not complained of chest pain. This admission also this presentation does not suggest ongoing myocardial ischemia. We will continue outpatient follow-up and continue present therapy.
== END 2020-05-02 15:34 | disposition home or self-care (01) | DRG 190 ==
LOC: ER 19:58 → EH 04-28 02:27 → 4S 04-28 03:50
PROVIDERS: ADMIT Emergency Medicine; ATTEND Internal Medicine
PROC: 5A09457 Assistance with Respiratory Ventilation, 24-96 Consecutive Hours, Continuous Positive Airway Pressure (ICD-10-PCS; principal; 2020-04-27)
DX: J43.2 Centrilobular emphysema (principal); J96.22 Acute and chronic respiratory failure with hypercapnia; I50.32 Chronic diastolic (congestive) heart failure; J96.11 Chronic respiratory failure with hypoxia; I11.0 Hypertensive heart disease with heart failure; I27.23 Pulmonary hypertension due to lung diseases and hypoxia; I87.2 Venous insufficiency (chronic) (peripheral); E78.5 Hyperlipidemia, unspecified; I25.10 Atherosclerotic heart disease of native coronary artery without angina pectoris; Z95.1 Presence of aortocoronary bypass graft; E11.9 Type 2 diabetes mellitus without complications; Z79.84 Long term (current) use of oral hypoglycemic drugs; Z79.899 Other long term (current) drug therapy; Z87.891 Personal history of nicotine dependence; Z82.49 Family history of ischemic heart disease and other diseases of the circulatory system; Z82.5 Family history of asthma and other chronic lower respiratory diseases; Z99.81 Dependence on supplemental oxygen
CPT/HCPCS: 36415; 36600; 71046; 80048; 80053; 80061; 81001; 82550; 82553; 82803; 82962; 83690; 83735; 83880; 84443; 84484; 85025; 85027; 86140; 87040; 87086; 93005; 93010; 94640; 94660; 96374; 96375; 99285; J1644; J1815; J1940; J2270; J2920; J2930; J3490; J7614; J7644

== ENCOUNTER → 2020-05-19 | Outpatient (CLI) | payer MEDICARE ==
--- NOTE | 2020-05-19 23:45 | RADIOLOGY REPORT (SQ) ---
Bilateral lower extremity venous Doppler ultrasound: 05/19/2020 10:42 PM CDT TECHNIQUE: Multiple grayscale and spectral Doppler images of the bilateral lower extremity veins were obtained. HISTORY: 54-year-old patient with bilateral lower extremity pain and swelling. FINDINGS: Normal compressibility and color Doppler images of the bilateral common femoral, femoral, popliteal veins were obtained. The visualized soft tissues appear grossly unremarkable. There are no findings to suggest deep vein thrombosis. The left greater saphenous vein is surgically absent. No strategic manager veins were seen. No venous reflux is apparent.. The right greater saphenous vein measures 5 mm proximally, 3 to 4 mm near the thigh and calf regions. The lesser saphenous vein measures up to 2 to 3 mm. IMPRESSION: There are no findings to suggest deep vein thrombosis within the bilateral lower extremities.
--- NOTE | 2020-05-20 08:59 | RADIOLOGY REPORT (SQ) ---
EXAM DESCRIPTION: [employer]; ARTERIAL LOWER EXTREM BILAT IMAGES COMPLETED DATE/TIME: 05/19/2020 4:51 pm REASON FOR STUDY: LT CALF ULCER L97.222 NON-PRESSURE CHRONIC ULCER OF LEFT CALF W FAT LAYER COMPARISON: None. TECHNIQUE: Dynamic and static landis scale and color images acquired of the lower extremity arteries. Additional selected spectral images recorded. ABIs recorded. LIMITATIONS: None. FINDINGS: RIGHT LEG: ABIS: 0.56 -0.57 INFLOW ARTERIES: Biphasic inflow. Scattered multifocal plaque. FEMORAL ARTERIES:Common femoral artery demonstrates biphasic waveform with scattered plaque and mildl y elevated velocity of 2.0 cm/sec. Profunda origin is patent. SFA demonstrates short segment occlus ion proximally with collateral vessel noted. Mid SFA is patent with abnormal diminished waveform. N o focal velocity elevation.. No aneurysm. POPLITEAL ARTERY:Scattered multifocal plaque. Monophasic waveform without focal stenosis.. No aneury sm. PATENT TIBIOPERONEAL TRUNK AND 3 VESSEL RUNOFF: Monophasic distal runoff without focal stenosis. TBI: Not performed. OTHER: No other significant finding. LEFT LEG: ABIS: 0.52 -0.59 INFLOW ARTERIES: Triphasic inflow. FEMORAL ARTERIES:Common femoral artery is patent with biphasic waveform. No focal velocity elevation . Profunda origin is patent. SFA demonstrates multifocal plaque and biphasic waveform. No high-gra de focal stenosis. No aneurysm. POPLITEAL ARTERY:Monophasic flow with multifocal plaque. No focal velocity elevation. No aneurysm.. PATENT TIBIOPERONEAL TRUNK AND 3 VESSEL RUNOFF: Bandage obscures proximal leg. Patent monophasic dis dwaine anterior tibial and posterior tibial arteries. TBI: Not performed. OTHER: No other significant finding. IMPRESSION: RIGHT: 1. ABIs 0.56-0.57 compatible with moderate ischemia. 2. Inflow with diminished biphasic waveforms. 3. Short segment occlusion of the proximal SFA a with monophasic distal runoff. LEFT: 1. ABIs 0.52- 0.59 compatible with moderate ischemia. 2. Triphasic inflow. 3. Multifocal plaque with diminished monophasic waveforms at the popliteal and runoff. COMMENT: [facility] NORMAL: Greater than 1.0 MINIMAL DISEASE: 0.9 to 1.0 CLAUDICATION: 0.5 to 0.9 SEVERE ARTERIAL DISEASE: Less than 0.5 [facility] NORMAL: Greater than 1.0 (1.2 If Heavy Calcifications) NORMAL TO MILD ISCHEMIA: 0.8 to 1.0 MODERATE ISCHEMIA: 0.4 to 0.8 SEVERE ISCHEMIA: Less than 0.4 TECHNICAL DOCUMENTATION: JOB ID: [id number] 2010 [employer]- All Rights Reserved Reading location - IP/workstation name: [email or web address]
--- NOTE | 2020-05-20 08:59 | RADIOLOGY REPORT (SQ) ---
EXAM DESCRIPTION: PHYSIO ARTERIAL LTD; ARTERIAL LOWER EXTREM BILAT IMAGES COMPLETED DATE/TIME: 05/19/2020 4:51 pm REASON FOR STUDY: LT CALF ULCER L97.222 NON-PRESSURE CHRONIC ULCER OF LEFT CALF W FAT LAYER COMPARISON: None. TECHNIQUE: Dynamic and static landis scale and color images acquired of the lower extremity arteries. Additional selected spectral images recorded. ABIs recorded. LIMITATIONS: None. FINDINGS: RIGHT LEG: ABIS: 0.56 -0.57 INFLOW ARTERIES: Biphasic inflow. Scattered multifocal plaque. FEMORAL ARTERIES:Common femoral artery demonstrates biphasic waveform with scattered plaque and mildl y elevated velocity of 2.0 cm/sec. Profunda origin is patent. SFA demonstrates short segment occlus ion proximally with collateral vessel noted. Mid SFA is patent with abnormal diminished waveform. N o focal velocity elevation.. No aneurysm. POPLITEAL ARTERY:Scattered multifocal plaque. Monophasic waveform without focal stenosis.. No aneury sm. PATENT TIBIOPERONEAL TRUNK AND 3 VESSEL RUNOFF: Monophasic distal runoff without focal stenosis. TBI: Not performed. OTHER: No other significant finding. LEFT LEG: ABIS: 0.52 -0.59 INFLOW ARTERIES: Triphasic inflow. FEMORAL ARTERIES:Common femoral artery is patent with biphasic waveform. No focal velocity elevation . Profunda origin is patent. SFA demonstrates multifocal plaque and biphasic waveform. No high-gra de focal stenosis. No aneurysm. POPLITEAL ARTERY:Monophasic flow with multifocal plaque. No focal velocity elevation. No aneurysm.. PATENT TIBIOPERONEAL TRUNK AND 3 VESSEL RUNOFF: Bandage obscures proximal leg. Patent monophasic dis dwaine anterior tibial and posterior tibial arteries. TBI: Not performed. OTHER: No other significant finding. IMPRESSION: RIGHT: 1. ABIs 0.56-0.57 compatible with moderate ischemia. 2. Inflow with diminished biphasic waveforms. 3. Short segment occlusion of the proximal SFA a with monophasic distal runoff. LEFT: 1. ABIs 0.52- 0.59 compatible with moderate ischemia. 2. Triphasic inflow. 3. Multifocal plaque with diminished monophasic waveforms at the popliteal and runoff. COMMENT: [facility] NORMAL: Greater than 1.0 MINIMAL DISEASE: 0.9 to 1.0 CLAUDICATION: 0.5 to 0.9 SEVERE ARTERIAL DISEASE: Less than 0.5 [facility] NORMAL: Greater than 1.0 (1.2 If Heavy Calcifications) NORMAL TO MILD ISCHEMIA: 0.8 to 1.0 MODERATE ISCHEMIA: 0.4 to 0.8 SEVERE ISCHEMIA: Less than 0.4 TECHNICAL DOCUMENTATION: JOB ID: [id number] 2010 [employer]- All Rights Reserved Reading location - IP/workstation name: [email or web address]
== END ==
LOC: SP 13:04
PROVIDERS: ATTEND Nurse Practitioner Family
DX: L97.222 Non-pressure chronic ulcer of left calf with fat layer exposed (principal)
CPT/HCPCS: 93922; 93925; 93970